=== PATIENT | female | born 1980 | race African-American/Black ===

== ENCOUNTER 2016-10-25 08:42 | Inpatient (IN) ==
[2016-10-25] MEDS ORDERED: PROMETHAZINE 25 MG/1 ML VIAL IM STA (09:37)
[2016-10-25] MEDS ORDERED: diphenhydrAMINE CAP 50 MG CAPSULE PO STA (09:37)
--- NOTE | 2016-10-25 09:58 | Emergency Department Note ---
Paul Bridges Brooke, am scribing for, and in the presence of, Jose Crowder MD 09:41 . Lakesha Bridges James D, MD, personally performed the services described in this documentation, ascribed by Marleny Miller in my presence, and it is both accurate and complete [id number] . Arrival - Arrival Chief Complaint: Headache Stated Complaint: headache and nausea ED Nursing Triage Note: pt reports that she has been having nausea and h/a for awhile reports that she was seen here tuesday night and told she had high bp and started on lisinopril. pt reports shes not feeling any better. Mode of Arrival: Ambulatory Limitations: No Limitations Source: Patient, RN Notes Reviewed Time Seen by Provider: 10/25/16 09:34 - History of Present Illness HPI Narrative: Patient is a 36 year old female who presents to the ED with c/o headache that has been ongoing for the past three weeks. Patient says the headache is diffuse but worse in the front. She describes the pain as throbbing. She also complains of having photophobia but denies having any fever or chills. She does have a history of migraines but says this pain is different. Patient was seen in the ED , two days ago, by Dr. Doll where her performed a head CT, which was negative. Patient says she was prescribed blood pressure medication but nothing for the headache. Along with the headache, Patient says she developed some tingling in her left thumb that is still there. She has no other complaints. Patient also has PMHx of HTN. Her Primary Care Provider is Dr. Henao. Onset (ago): week(s) (3) Date of Last Menstrual Period: hyst Allergies/Adverse Reactions: Allergies Allergy/AdvReac Type Severity Reaction Status Date / Time hydrocodone Allergy ANAPHYLAXIS Verified 10/23/16 20:32 sulfamethoxazole Allergy ANAPHYLAXIS Verified 10/23/16 20:32 [From Bactrim] trimethoprim [From Bactrim] Allergy ANAPHYLAXIS Verified 10/23/16 20:32 cefdinir [From Omnicef] AdvReac Nausea Verified 10/23/16 20:32 Home Medications: Home Medications Medication Instructions Recorded Confirmed Type Amitriptyline [Elavil] 10 mg PO Q6H #12 tablet 10/23/16 10/25/16 Rx Lisinopril/Hydrochlorothiazide 1 each PO DAILY #30 tablet 10/23/16 10/25/16 Rx [Lisinopril-Hctz 20-25 mg Tab] Promethazine Tab [Phenergan Tab] 25 mg PO Q6H #12 tablet 10/23/16 10/25/16 Rx Review of System - Review of System 12 point system: reviewed and no additional remarkable complaints except as stated - Review of System Constitutional: Absent: chills, fever Eyes: Present: other (photophobia) Respiratory: Absent: respiratory distress Skin: Absent: rash Neurological: Present: headache (diffuse but worse in front), other (tingling left thumb) Medical,Surgical,& Family Hx - Medical History Cardio: History of: Hypertension HEENT: History of: HEENT Problems (vocal cord surgery) - Surgical History Abdominal Surgeries: Surgical HX of: Cholecystectomy Reproductive Surgeries: Surgical HX of;: Hysterectomy - Social History Smoking Status: Never smoker Exam Vital Signs: Vital Signs Temperature 98.6 F 10/25/16 10: Pulse Rate 63 10/25/16 10:17 Respiratory Rate 18 10/25/16 10:17 Blood Pressure 140/88 10/25/16 10:17 O2 Sat by Pulse Oximetry 100 10/25/16 08:54 GENERAL: This is a well-nourished well-developed white female in no apparent distress. VITAL SIGNS: Reviewed HEENT: Head is atraumatic and normocephalic. Pupils are equal round react to light. Extraocular movements are intact. Oropharynx is benign with moist mucous membranes. NECK: Neck is soft and supple without tenderness. There are no masses. There is no lymphadenopathy. LUNGS: Lungs are clear to auscultation. Chest rises symmetrically. There is no chest wall tenderness. CV: Heart is regular rate and rhythm without murmurs rubs or gallops. ABDOMEN: Abdomen is soft, nontender to palpation. There are no abdominal abnormal masses palpated. There is no organomegaly. Bowel sounds are present and active. SKIN: Skin is warm and dry. No rash. EXTREMITIES: Patient has full range of motion without tenderness. There is no pedal edema. NEUROLOGIC: Awake alert and oriented 4. Cranial nerves II through XII are grossly intact. Motor is 5 over 5 in all extremities bilaterally. Deep tendon reflexes are 2+ and bilaterally equal. Results - Labs CBC & BMP: 10/25/16 12:38 Disposition Clinical Impression: Headache Case discussed with: patient Disposition: Disch To Home/Self Care Condition: Stable
[2016-10-25] MEDS ORDERED: diphenhydrAMINE CAP 50 MG CAPSULE ONE (10:08)
[2016-10-25] MEDS ORDERED: PROMETHAZINE 25 MG/1 ML VIAL ONE (10:08)
[2016-10-25] MEDS ORDERED: KETOROLAC 60 MG/2 ML VIAL IM ONE (10:53)
[2016-10-25] MEDS ORDERED: amLODIPine 5 MG TABLET ONE (10:54)
[2016-10-25] MEDS ORDERED: amLODIPine 5 MG TABLET PO STA (11:02)
[2016-10-25] MEDS ORDERED: KETOROLAC 60 MG/2 ML VIAL IM STA (11:03)
[2016-10-25] MEDS ORDERED: ONDANSETRON 4 MG/2 ML VIAL IV STA (12:04)
--- NOTE | 2016-10-25 12:44 | CT Report ---
Referring physician: Jose Crowder Exam: CT brain without contrast Date: 10/25/2016 Comparison: None Reason: Headache Technique: Axial images of the head were obtained without the use of contrast. Total DLP was 914.60 mGy*cm. Findings: No hydrocephalus or midline shift is present. There is no evidence of an acute infarction, recent intracranial hemorrhage or abnormal mass effect. The osseous structures appear intact. The mastoid air cells and visualized paranasal sinuses are clear. Impression: No acute intracranial abnormality is identified. The CT exam was performed using one or more of the following dose reduction techniques: Automated exposure control and adjustment of the mA and/or kV according to patient size. PROCEDURE INTERPRETED AT [facility] DEPARTMENT OF RADIOLOGY Final Report Signed by: Dr. Autumn Castro
[2016-10-25 12:45] LABS: Basophils % 0.5 % (0.0-0.8); Eosinophils # 0.1 10*3/uL (0.0-0.87); Eosinophils % 1.3 % (0.00-10.9); Hematocrit 43.9 VOL% (35.7-47.0); Hemoglobin 14.6 GM/DL (12.0-16.0); Immature Granulocytes % 0.2 %; Immature Granulocytes Absolute 0.01 #; Lymphocytes # 2.3 10*3/uL (1.4-4.0); Lymphocytes % 42.2 % (21.3-54.2); Mean Corpuscular HGB Conc 33.3 GM/DL (32-36); Mean Corpuscular Hemoglobin 29 PG (27-34); Mean Corpuscular Volume 86.9 FL (87-102); Mean Platelet Volume 11.6 FL (9.6-12.0); Monocytes # 0.4 10*3/uL (0.11-0.8); Monocytes % 7.2 % (1.7-12.7); Neutrophils # 2.7 10*3/uL (1.4-7.4); Neutrophils % 48.6 % (38.7-73.9); Platelet Count 157 T/CUMM (130-400); Red Blood Count 5.05 MC/CUMM (3.8-5.5); Red Cell Distribution Width 14.1 % (9.3-17.3); White Blood Count 5.5 T/CUMM (4-12)
[2016-10-25] MEDS ORDERED: HYDROmorphone 2 MG/1 ML VIAL ONE (12:47)
[2016-10-25] MEDS ORDERED: ONDANSETRON 4 MG/2 ML VIAL ONE (12:48)
[2016-10-25 12:49] LABS: Apearance,Urine CLEAR (Clear); Bilirubin,Urine Negative (Negative); Blood, Urine Negative (Negative); Glucose,Urine (UA) Negative (Negative); Ketones,Urine Negative (Negative); Mucus,Urine Occasional /LPF (Occasional); Nitrite,Urine Negative (Negative); Protein,Urine Negative; RBC,Urine <1 /HPF (0-4); Squamous Epithelial Cell,Urine Occasional /HPF (0-10); Urine Color Straw (Yellow); Urine Specific Gravity 1.009 (1.001-1.035); Urine Urobilinogen < 2.0 EU/DL (0.2-1.0); WBC,Urine 1 /HPF (0-6)
--- NOTE | 2016-10-25 12:49 | Hospitalist History & Physical ---
Assessment and Plan (1) Intractable migraine Status: Acute Assessment and plan: Dilaudid IV as needed, consult Dr. Dr. Guy, radiology recommends MRI with contrast. 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 Patient has had problems with a migraine for approximately 3 weeks. She was seen in the ER 2 days ago. She was given shots and sent home with Phenergan. Her headache improved but quickly worsened yesterday. She returns to the ER today with nausea and pain with light and sound. I would like Dr. Guy to see her today. Her head CT was reviewed with the radiologist and they did not see any evidence of tumor or bleed but recommended MRI with contrast. Home Medications Medication Instructions Recorded Confirmed Type Amitriptyline [Elavil] 10 mg PO Q6H #12 tablet 10/23/16 10/25/16 Rx Lisinopril/Hydrochlorothiazide 1 each PO DAILY #30 tablet 10/23/16 10/25/16 Rx [Lisinopril-Hctz 20-25 mg Tab] Promethazine Tab [Phenergan Tab] 25 mg PO Q6H #12 tablet 10/23/16 10/25/16 Rx Allergies Allergy/AdvReac Type Severity Reaction Status Date / Time hydrocodone Allergy ANAPHYLAXIS Verified 10/23/16 20:32 sulfamethoxazole Allergy ANAPHYLAXIS Verified 10/23/16 20:32 [From Bactrim] trimethoprim [From Bactrim] Allergy ANAPHYLAXIS Verified 10/23/16 20:32 cefdinir [From Omnicef] AdvReac Nausea Verified 10/23/16 20:32 Medical,Surgical,& Family Hx - Medical History Cardio: History of: Hypertension HEENT: History of: HEENT Problems (vocal cord surgery) - Surgical History Abdominal Surgeries: Surgical HX of: Cholecystectomy Reproductive Surgeries: Surgical HX of;: Hysterectomy - Family History Family History: Reports;: Family Stroke, Additional Family History (Migraines) Denies;: Family Diabetes, Family Heart Disease - Social History Smoking Status: Never smoker Frequency of Alcohol Use: None Type of Drug Use: None Marital Status: Single Lives With:: Alone Functional capacity: independent ambulation - Constitutional Constitutional: Present: chills, fever(s), headache(s) - EENT Eyes: Present: other (Pain with light). Absent: blurry vision, diplopia Ears: Absent: decreased hearing, ear discharge Nose, mouth and throat: Present: headache(s), sinus pressure - Cardiovascular Cardiovascular: Absent: chest pain at rest, chest pain with activity, dyspnea, dyspnea on exertion, edema - Respiratory Respiratory: Absent: dyspnea, dyspnea on exertion - Gastrointestinal Gastrointestinal: Present: nausea. Absent: vomiting - Genitourinary Genitourinary: Absent: difficulty urinating, dysuria, flank pain - Musculoskeletal Musculoskeletal: Absent: arthralgias, back pain - Neurological Neurological: Present: confusion, headache(s). Absent: syncope - Psychiatric Psychiatric: Absent: anxiety, depression - Endocrine Endocrine: Absent: cold intolerance, heat intolerance - Hematologic/Lymphatic Hematologic/Lymphatic: Absent: easy bleeding, easy bruising Exam - Constitutional Vitals: Period Temp Pulse Resp BP Sys/Araiza Pulse Ox Last 24 Hr 98.6 F-98.6 F 63-63 18-18 140-140/88-88 100 General appearance: normal weight, no acute distress - Head Head exam: Present: normal inspection, normocephalic - Eye Eye exam: Present: EOMI. Absent: scleral icterus Pupils: Present: SANDRO, normal accommodation - ENT ENT exam: Present: normal exam, normal external ear exam - Neck Neck exam: Absent: lymphadenopathy, thyromegaly - Respiratory Respiratory exam: Present: clear to auscultation bilaterally. Absent: rhonchi, stridor, wheezes - Cardiovascular Cardiovascular exam: Present: regular rate and rhythm. Absent: systolic murmur - GI/Abdominal GI/Abdominal exam: Present: normal bowel sounds, soft. Absent: tenderness - Extremities Exam Extremities exam: Present: normal inspection, normal capillary refill - Neurological Exam Neurological exam: Present: alert, oriented X3, CN II-XII intact, reflexes normal. Absent: motor sensory deficit - Psychiatric Psychiatric exam: Present: normal affect, normal mood - Skin Skin exam: Present: normal color, warm Results - Labs Labs: No labs back - Diagnostic Findings Procedure: CT: report reviewed by me (No report officially back discussed with the radiologist no bleed or mass)
[2016-10-25 13:26] LABS: Albumin 3.6 G/DL (3.4-5.0); Bilirubin,Total 0.4 MG/DL (0.2-1.0); Calcium 9.4 MG/DL (8.5-10.1); Osmolality,Calculated 277.3 MOS/KG (273-304); Potassium 3.7 MMOL/L (3.5-5.1); Total Protein 7.1 G/DL (6.4-8.3)
[2016-10-25] MEDS ORDERED: HYDROmorphone 2 MG/1 ML VIAL IV STA (14:01)
[2016-10-25] MEDS ORDERED: ONDANSETRON 4 MG/2 ML VIAL IV PRN (14:52)
[2016-10-25] MEDS ORDERED: AMITRIPTYLINE 10 MG TABLET PO SCH (14:52)
[2016-10-25] MEDS ORDERED: HYDROmorphone 2 MG/1 ML VIAL IV PRN (14:52)
--- NOTE | 2016-10-25 16:25 | Neurology Consult Note ---
History of Present Illness History of present illness: Ms. Tripathi is a 36 year old right-handed -[place] lady with past medical history significant for migraine headaches admitted the hospital with 3 week history of constant headache. She reported that she has taken multiple [id number] pain medications including Excedrin but nothing has helped. She describes her headache as deep throbbing type pain which hurts on all over the head associated with some nausea but no vomiting, photophobia and phonophobia. Never had a headache like this before. Patient has not been able to sleep either. She gets migraine headaches once in a blue marie. She reported that her headache is 8 out of 10 at this point in time. Head CT is negative. Home Medications Medication Instructions Recorded Confirmed Type Amitriptyline [Elavil] 10 mg PO Q6H #12 tablet 10/23/16 10/25/16 Rx Lisinopril/Hydrochlorothiazide 1 each PO DAILY #30 tablet 10/23/16 10/25/16 Rx [Lisinopril-Hctz 20-25 mg Tab] Promethazine Tab [Phenergan Tab] 25 mg PO Q6H #12 tablet 10/23/16 10/25/16 Rx Allergies Allergy/AdvReac Type Severity Reaction Status Date / Time hydrocodone Allergy ANAPHYLAXIS Verified 10/23/16 20:32 sulfamethoxazole Allergy ANAPHYLAXIS Verified 10/23/16 20:32 [From Bactrim] trimethoprim [From Bactrim] Allergy ANAPHYLAXIS Verified 10/23/16 20:32 cefdinir [From Omnicef] AdvReac Nausea Verified 10/23/16 20:32 12 point system: reviewed and no additional remarkable complaints except as stated Medical,Surgical,& Family Hx - Medical History Cardio: History of: Hypertension HEENT: History of: 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) - Surgical History Abdominal Surgeries: Surgical HX of: Cholecystectomy Reproductive Surgeries: Surgical HX of;: Gynecologic Surgery, Hysterectomy - Family History Family History: Reports;: Family Stroke, Additional Family History (Migraines) Denies;: Family Diabetes, Family Heart Disease - Social History Smoking Status: Never smoker Frequency of Alcohol Use: None Type of Drug Use: None Exam - Constitutional Vitals: Period Temp Pulse Resp BP Sys/Araiza Pulse Ox Last 24 Hr 97.3 F-98.6 F 56-63 18-20 137-149/88-93 92-100 Exam: GENERAL: Patient is in no acute distress. NECK: Neck is supple. There is no JVD. No carotid bruits present. No thyroid masses. CVS: First and second heart sounds are normal. There is no S3 present. Regular rate and rhythm. RESPIRATORY: Lungs are clear to auscultation without any rales or rhonchi. ABDOMEN: Soft and non-tender. Bowel sounds are present. There is no hepatosplenomegaly. EXT: There is no palpable edema. Peripheral pulses are present. Skin: No rashes Central Nervous system: General: Alert, awake and Oriented x 3 Speech: Fluent Comprehension: Intact and normal Facial expressions: Normal Cranial Nerves: CN1/Olfactory: Normal CN II/ Optic: Normal, Visual Ashley unreliable CN III, and : SANDRO & EOMI CN V: Normal & intact CN VII: face is symmetric CNVIII: Normal CN XI/X/XI/XII: Intact and Normal Motor: Bulk and Tone is normal. Strength in the right 5/5 Strength in the left 5/5 Sensory: Grossly intact for all the modalities of PP, LT and temp sense Reflexes: 1+ and symmetrical Cerebellar function: Normal finger to nose and heel to laboy testing. Toes: Equivocal Gait: Normal heel to heel and toe to toe and tandem walk. Results - Labs CBC & BMP: 10/25/16 12:38 10/25/16 12:38 Assessment and Plan (1) Intractable migraine Status: Acute Assessment and plan: Geodon 20 mg IM 1 dose now Change Elavil to 50 mg p.o. at bedtime Stop Dilaudid Thank you for the consult We will follow her along with you Current Visit: Yes
[2016-10-25] MEDS ORDERED: ZIPRASIDONE 20 MG/1 ML VIAL IM ONE (16:27)
[2016-10-25] MEDS: DIVALPROEX 500 MG TABLET PO SCH ×2 (17:29→21:28)
[2016-10-25] MEDS: AMITRIPTYLINE 10 MG TABLET PO SCH (21:27)
[2016-10-26] MEDS: amLODIPine 5 MG TABLET PO SCH (09:33)
[2016-10-26] MEDS: DIVALPROEX 500 MG TABLET PO SCH (09:33)
--- NOTE | 2016-10-26 09:47 | EKG Report ---
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
--- NOTE | 2016-10-26 11:47 | Hospitalist Progress Note ---
Assessment and Plan (1) Intractable headache Status: Acute Assessment and plan: She does have a history of migraines. This could be complex migraines or basilar migraines. There are typical and that there are bilateral and they at this point is association of alarming symptoms with blood vision and left arm weakness and numbness. Patient needs to have an MRI and MRA. If the MRI is abnormal patient will need a CTA. Current Visit: Yes (2) Dysesthesia Status: Acute Assessment and plan: This is associated with headaches such as an alarming symptom. And if is the central ischemia space-occupying pathology basilar migraine or simple migraines. Current Visit: Yes (3) Blurred vision Status: Acute Assessment and plan: Patient will have an MRI and MRA of the brain. Current Visit: Yes Hospitalist: Subjective Interval history: Patient has been seen interviewed and examined and chart has been reviewed mediated to the hospital in the late evening yesterday with intractable headaches left-sided visual disturbance with blurring of vision complaining of numbness and weakness in the left upper extremity. She had a noncontrast CT scan which was nondiagnostic. These abdominal symptoms as mentioned above still persist as such they are alarming enough for me to order an MRI of the brain and MRA of the brain for this lady. She is on observation; I believe we should keep her here until we know more about the MRI. If something is found on the brain she should be changed to acute admission. Exam - Constitutional Vitals: Period Temp Pulse Resp BP Sys/Araiza Pulse Ox Last 24 Hr 96.7 F-98.3 F 56-84 14-20 96-149/56-93 92-100 General appearance: normal weight, no acute distress - Head Head exam: Present: normocephalic, atraumatic - Eye Eye exam: Present: EOMI, other (Complains of blurriness of the left eye.) Pupils: Present: SANDRO - ENT ENT exam: Present: normal exam - Neck Neck exam: Present: normal inspection - Respiratory Respiratory exam: Present: clear to auscultation bilaterally - Cardiovascular Cardiovascular exam: Present: regular rate and rhythm - GI/Abdominal GI/Abdominal exam: Present: normal bowel sounds, soft - Extremities Exam Extremities exam: Present: full ROM, other (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
--- NOTE | 2016-10-26 12:22 | Magnetic Resonance Report ---
MRI of the brain with and without contrast. Indication: Left-sided weakness. Migraines. 13 cc Dotarem. No prior study. Sagittal T1, axial diffusion, axial T2, axial FLAIR, axial T1, axial gradient echo, axial T1 plus contrast, sagittal T1 postcontrast, coronal T1 plus contrast, axial ADC. The cerebellar tonsils are low-lying, ranging between 4 to 7 mm below the foramen magnum depending on level of measurement. The right tonsil is more inferiorly displaced than the left, and demonstrates mild triangulation of contour. There is no edema present. There is no compromise of the junction of the brainstem and the cord. There is no evidence of cervical syrinx. The pituitary gland is normal in size. The ventricles are normal in size and configuration. The venous sinuses are patent there is no mass effect, midline shift, or area of hemorrhage. There is no abnormal signal within the white matter. No ischemic lesions are seen. There are no areas of abnormal enhancement. Mild paranasal sinus disease. 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 Careful clinical correlation with symptoms recommended. No secondary findings seen. No ischemic lesions are noted at this time. PROCEDURE INTERPRETED AT [facility] DEPARTMENT OF RADIOLOGY Final Report Signed by: Dr. Kindra Rodríguez
--- NOTE | 2016-10-26 12:24 | Magnetic Resonance Report ---
MRA of the [place] of [place]. Indication: Migraine headaches. Left-sided weakness. MIP and 3-D [id number]. The anterior and posterior circulations demonstrate normal columns of flow, without evidence of stenosis, irregularity or beading. No aneurysmal dilatation is seen. Impression: Normal study. PROCEDURE INTERPRETED AT [facility] DEPARTMENT OF RADIOLOGY Final Report Signed by: Dr. Kindra Rodríguez
[2016-10-26] MEDS: KETOROLAC 15 MG/1 ML VIAL IV PRN (12:37)
[2016-10-26] MEDS: PROMETHAZINE 25 MG/1 ML VIAL IM PRN ×2 (12:39→17:22)
--- NOTE | 2016-10-26 15:42 | Neurology Progress Note ---
Neurology - PN : Subjective Interval history: Patient reported that she did get better yesterday night as well as early this morning she was doing much better headache torres however later during the day headache returned. She also underwent MRI of the brain and MRA of the head which reveals no significant pathology. There is a evidence of borderline Chiari malformation which is asymptomatic. Exam (Progress Note) - Constitutional Vitals: Period Temp Pulse Resp BP Sys/Araiza Pulse Ox Last 24 Hr 96.7 F-98.3 F 61-84 14-20 96-122/56-74 96-100 Exam: GENERAL: Patient is in no acute distress. NECK: Neck is supple. There is no JVD. No carotid bruits present. No thyroid masses. CVS: First and second heart sounds are normal. There is no S3 present. Regular rate and rhythm. RESPIRATORY: Lungs are clear to auscultation without any rales or rhonchi. ABDOMEN: Soft and non-tender. Bowel sounds are present. There is no hepatosplenomegaly. EXT: There is no palpable edema. Peripheral pulses are present. Skin: No rashes Central Nervous system: General: Alert, awake and Oriented x 3 Speech: Fluent Comprehension: Intact and normal Facial expressions: Normal Cranial Nerves: CN1/Olfactory: Normal CN II/ Optic: Normal, Visual Ashley unreliable CN III, and : SANDRO & EOMI CN V: Normal & intact CN VII: face is symmetric CNVIII: Normal CN XI/X/XI/XII: Intact and Normal Motor: Bulk and Tone is normal. Strength in the right 5/5 Strength in the left 5/5 Sensory: Grossly intact for all the modalities of PP, LT and temp sense Reflexes: 1+ and symmetrical Cerebellar function: Normal finger to nose and heel to laboy testing. Toes: Equivocal Gait: Not tested at this time Results - Labs CBC & BMP: 10/25/16 12:38 10/25/16 12:38 Assessment and Plan (1) Intractable migraine Status: Acute Assessment and plan: Imitrex 6 mg subcu 1 dose Phenergan 25 mg IM 1 dose Thorazine 25 mg IV 1 dose at bedtime Continue Elavil at the same dose Stop Depakote Current Visit: Yes
[2016-10-26] MEDS ORDERED: SUMAtriptan 6 MG/0.5 ML VIAL SUBCUT ONE (15:46)
[2016-10-26] MEDS ORDERED: PROMETHAZINE 25 MG/1 ML VIAL IM ONE (15:47)
[2016-10-26] MEDS ORDERED: chlorproMAZINE 25 MG/1 ML AMP IM ONE ×2 (21:00→22:30)
[2016-10-26] MEDS: AMITRIPTYLINE 10 MG TABLET PO SCH (22:32)
[2016-10-27] MEDS: amLODIPine 5 MG TABLET PO SCH (08:45)
--- NOTE | 2016-10-27 15:26 | Hospitalist Progress Note ---
Assessment and Plan (1) Intractable headache Status: Acute Assessment and plan: Neurology assisting MRI and MRA without acute process Current Visit: Yes (2) Dysesthesia Status: Acute Current Visit: Yes (3) Blurred vision Status: Acute Current Visit: Yes Hospitalist: Subjective Interval history: No acute events overnight. Patient still with headache exacerbated by movement. She reports hallucinations with a medication that she received overnight. Exam - Constitutional Vitals: Period Temp Pulse Resp BP Sys/Araiza Pulse Ox Last 24 Hr 97.5 F-98.4 F 80-107 18-20 94-118/52-70 93-99 General appearance: normal weight - Head Head exam: Present: normocephalic, atraumatic - Eye Eye exam: Present: EOMI Pupils: Present: SANDRO - ENT ENT exam: Present: normal exam - Neck Neck exam: Present: normal inspection - Respiratory Respiratory exam: Present: clear to auscultation bilaterally. Absent: wheezes - Cardiovascular Cardiovascular exam: Present: regular rate and rhythm - GI/Abdominal GI/Abdominal exam: Present: normal bowel sounds, soft. Absent: tenderness, rebound - Extremities Exam Extremities exam: Present: normal inspection - Back Exam Back exam: Present: normal inspection - Neurological Exam Neurological exam: Present: alert, oriented X3 - Psychiatric Psychiatric exam: Present: normal affect, normal mood - Skin Skin exam: Present: warm, intact Results - Labs CBC & BMP: 10/25/16 12:38 10/25/16 12:38
--- NOTE | 2016-10-27 15:53 | Neurology Progress Note ---
Neurology - PN : Subjective Interval history: Patient reported that headaches are better but it is still there. She could not tolerate Imitrex yesterday. Given her palpitation and some questionable hallucinations. Severity of the headache at this time is 5-6/10 Exam (Progress Note) - Constitutional Vitals: Period Temp Pulse Resp BP Sys/Araiza Pulse Ox Last 24 Hr 97.5 F-98.4 F 80-107 18-20 94-154/52-70 93-99 Exam: GENERAL: Patient is in no acute distress. NECK: Neck is supple. There is no JVD. No carotid bruits present. No thyroid masses. CVS: First and second heart sounds are normal. There is no S3 present. Regular rate and rhythm. RESPIRATORY: Lungs are clear to auscultation without any rales or rhonchi. ABDOMEN: Soft and non-tender. Bowel sounds are present. There is no hepatosplenomegaly. EXT: There is no palpable edema. Peripheral pulses are present. Skin: No rashes Central Nervous system: General: Alert, awake and Oriented x 3 Speech: Fluent Comprehension: Intact and normal Facial expressions: Normal Cranial Nerves: CN1/Olfactory: Normal CN II/ Optic: Normal, Visual Ashley unreliable CN III, and : SANDRO & EOMI CN V: Normal & intact CN VII: face is symmetric CNVIII: Normal CN XI/X/XI/XII: Intact and Normal Motor: Bulk and Tone is normal. Strength in the right 5/5 Strength in the left 5/5 Sensory: Grossly intact for all the modalities of PP, LT and temp sense Reflexes: 1+ and symmetrical Cerebellar function: Normal finger to nose and heel to laboy testing. Toes: Equivocal Gait: Not tested at this time Results - Labs CBC & BMP: 10/25/16 12:38 10/25/16 12:38 Assessment and Plan (1) Intractable migraine Status: Acute Assessment and plan: Give her a trial of DHE 45 as follows DHE 45 0.5 mg IV and Reglan 10 mg IV test dose, wait for 30 minute if no reaction then repeat the same dose. Wait for 1 hour. If headache persists then give following D.H.E. 45 1 mg IV and Reglan 10 mg IV every hour as needed not more than 2 doses per 24 hours If headache persist after DHE protocol, then we will try Geodon 20 mg IM 1 dose at bedtime If headache persist in the morning then we will plan for spinal tap Current Visit: Yes
[2016-10-27] MEDS ORDERED: METOCLOPRAMIDE 10 MG/2 ML VIAL IV ONE (15:54)
[2016-10-27] MEDS ORDERED: ZIPRASIDONE 20 MG/1 ML VIAL IM PRN (15:58)
[2016-10-27] MEDS ORDERED: DIHYDROERGOTAMINE 1 MG/ML AMP IV ONE (15:59)
[2016-10-27] MEDS: KETOROLAC 15 MG/1 ML VIAL IV PRN (19:30)
[2016-10-27] MEDS: AMITRIPTYLINE 10 MG TABLET PO SCH (20:57)
[2016-10-28 07:24] LABS: Basophils % 0.4 % (0.0-0.8); Eosinophils # 0.1 10*3/uL (0.0-0.87); Eosinophils % 1.4 % (0.00-10.9); Hematocrit 38.5 VOL% (35.7-47.0); Lymphocytes # 1.9 10*3/uL (1.4-4.0); Lymphocytes % 39.3 % (21.3-54.2); Mean Corpuscular HGB Conc 33.8 GM/DL (32-36); Mean Corpuscular Hemoglobin 29 PG (27-34); Mean Corpuscular Volume 86.9 FL (87-102); Mean Platelet Volume 11.8 FL (9.6-12.0); Monocytes # 0.4 10*3/uL (0.11-0.8); Monocytes % 8.9 % (1.7-12.7); Neutrophils # 2.4 10*3/uL (1.4-7.4); Platelet Count 157 T/CUMM (130-400); Red Blood Count 4.43 MC/CUMM (3.8-5.5); Red Cell Distribution Width 14.2 % (9.3-17.3); White Blood Count 4.8 T/CUMM (4-12)
[2016-10-28 07:55] LABS: Calcium 8.5 MG/DL (8.5-10.1); Magnesium 2.2 MG/DL (1.8-2.4); Osmolality,Calculated 285.8 MOS/KG (273-304)
[2016-10-28] MEDS: NYSTATIN 500,000 UNIT/5 ML UDCUP SWISH/SWAL SCH ×4 (09:11→20:33)
[2016-10-28] MEDS: amLODIPine 5 MG TABLET PO SCH (09:11)
--- NOTE | 2016-10-28 09:14 | Neurology Progress Note ---
Neurology - PN : Subjective Interval history: Patient still have some headache this morning. Headache severity is 5/10. She could not tolerate test dose of DHE yesterday either. That made her head feel heavy. She has been having hard time tolerating medicines. Exam (Progress Note) - Constitutional Vitals: Period Temp Pulse Resp BP Sys/Araiza Pulse Ox Last 24 Hr 97.0 F-98.4 F 73-107 16-20 106-154/58-74 95-99 Exam: GENERAL: Patient is in no acute distress. NECK: Neck is supple. There is no JVD. No carotid bruits present. No thyroid masses. CVS: First and second heart sounds are normal. There is no S3 present. Regular rate and rhythm. RESPIRATORY: Lungs are clear to auscultation without any rales or rhonchi. ABDOMEN: Soft and non-tender. Bowel sounds are present. There is no hepatosplenomegaly. EXT: There is no palpable edema. Peripheral pulses are present. Skin: No rashes Central Nervous system: General: Alert, awake and Oriented x 3 Speech: Fluent Comprehension: Intact and normal Facial expressions: Normal Cranial Nerves: CN1/Olfactory: Normal CN II/ Optic: Normal, Visual Ashley unreliable CN III, and : SANDRO & EOMI CN V: Normal & intact CN VII: face is symmetric CNVIII: Normal CN XI/X/XI/XII: Intact and Normal Motor: Bulk and Tone is normal. Strength in the right 5/5 Strength in the left 5/5 Sensory: Grossly intact for all the modalities of PP, LT and temp sense Reflexes: 1+ and symmetrical Cerebellar function: Normal finger to nose and heel to laboy testing. Toes: Equivocal Gait: Normal Results - Labs CBC & BMP: 10/28/16 05:57 10/28/16 05:57 Assessment and Plan (1) Intractable migraine Status: Acute Assessment and plan: Compazine 10 mg p.o. every 8 Benadryl 25 mg p.o. every 8 Consult pain for occipital nerve block. Current Visit: Yes
[2016-10-28] MEDS: diphenhydrAMINE CAP 25 MG CAPSULE PO SCH ×2 (09:35→16:58)
[2016-10-28] MEDS: PROCHLORPERAZINE 10 MG TABLET PO SCH ×2 (09:35→16:58)
[2016-10-28] MEDS ORDERED: DEXAMETHASONE 10 MG/1 ML VIAL IM ONE (10:08)
[2016-10-28] MEDS ORDERED: BUPIVACAINE 0.5% /EPI 10 ML VIAL NERVEBLOCK ONE (10:08)
--- NOTE | 2016-10-28 10:52 | Pain Management Consult Note ---
Assessment and Plan (1) Intractable migraine Status: Acute Assessment and plan: We will proceed with bilateral greater and lesser occipital nerve blocks today at patient request Current Visit: Yes Qualifiers: Migraine type: without aura History of Present Illness Chief complaint: Bilateral occipital headaches History of present illness: Ms. Tripathi is a 36 year old female Patient has been admitted with severe occipital headaches. I was asked by Dr. Guy to proceed with bilateral occipital nerve blocks. I have had a detailed discussion with the patient and her family. I have explained the risks benefits and limitations of these blocks and possible side effects and complications and patient is willing to proceed today Home Medications Medication Instructions Recorded Confirmed Type Amitriptyline [Elavil] 10 mg PO Q6H #12 tablet 10/23/16 10/25/16 Rx Lisinopril/Hydrochlorothiazide 1 each PO DAILY #30 tablet 10/23/16 10/25/16 Rx [Lisinopril-Hctz 20-25 mg Tab] Promethazine Tab [Phenergan Tab] 25 mg PO Q6H #12 tablet 10/23/16 10/25/16 Rx Allergies Allergy/AdvReac Type Severity Reaction Status Date / Time hydrocodone Allergy ANAPHYLAXIS Verified 10/23/16 20:32 sulfamethoxazole Allergy ANAPHYLAXIS Verified 10/23/16 20:32 [From Bactrim] trimethoprim [From Bactrim] Allergy ANAPHYLAXIS Verified 10/23/16 20:32 cefdinir [From Omnicef] AdvReac Nausea Verified 10/23/16 20:32 Medical,Surgical,& Family Hx - Medical History Cardio: History of: Hypertension HEENT: History of: 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) - Surgical History Abdominal Surgeries: Surgical HX of: Cholecystectomy Reproductive Surgeries: Surgical HX of;: Gynecologic Surgery, Hysterectomy - Family History Family History: Reports;: Family Stroke, Additional Family History (Migraines) Denies;: Family Diabetes, Family Heart Disease - Social History Smoking Status: Never smoker Frequency of Alcohol Use: None Type of Drug Use: None 12 point system: reviewed and no additional remarkable complaints except as stated Exam - Constitutional Vitals: Period Temp Pulse Resp BP Sys/Araiza Pulse Ox Last 24 Hr 97.0 F-98.4 F 73-107 16-20 106-154/58-74 95-99 General appearance: normal weight - Head Head exam: Present: normal inspection - Eye Eye exam: Present: EOMI Pupils: Present: SANDRO - ENT ENT exam: Present: normal exam, other (Bilateral occipital areas are tender) Ear exam: Present: intact Mouth exam: Present: normal external inspection - Neck Neck exam: Present: normal inspection - Respiratory Respiratory exam: Present: clear to auscultation bilaterally - Cardiovascular Cardiovascular exam: Present: RRR - GI/Abdominal GI/Abdominal exam: Present: normal bowel sounds - Extremities Exam Extremities exam: Present: normal inspection - Back Exam Back exam: Present: normal inspection - Neurological Exam Neurological exam: Present: alert, oriented X3, normal gait Speech: Present: normal - Skin Skin exam: Present: normal color Results - Labs CBC & BMP: 10/28/16 05:57 10/28/16 05:57 Lab Results: I have reviewed the past 24 hour labs
[2016-10-28] MEDS ORDERED: LIDOCAINE 1% 20 ML VIAL IM ONE (10:54)
--- NOTE | 2016-10-28 10:55 | Operative Note ---
Date of procedure: 10/28/16 Pre-op diagnosis: Bilateral greater and lesser occipital neuralgia, intractable migraine Post-op diagnosis: same Procedure: Procedure is bilateral greater and lesser occipital nerve blocks Informed consent was signed and patient was sitting on the side of her bed facing away from me with adequate support. Informed consent has been signed. Bilateral occipital areas were identified with landmarks and Betadine and alcohol prep was done by me. Using a 25-gauge needle at the procedure was started on the right side. The right greater occipital nerve blocks was performed just medial of the occipital artery and the right lesser occipital nerve block was performed lateral to the right occipital artery. Total amount injected was 5 mg of Decadron and half a cc of 1% lidocaine. Attention was then diverted towards the left greater and lesser occipital nerve area similar procedure was performed and 5 mg Decadron a half a cc 1% lidocaine was injected there. Needle was removed intact. Patient did not have any swelling or significant bleeding any side effects. Patient did report some pain relief after the procedure. Anesthesia: local Surgeon / Physician: Angeles Andino Estimated blood loss: none Specimens: none sent Condition: stable Disposition: floor Results - Labs CBC & BMP: 10/28/16 05:57 10/28/16 05:57 Discharge Plan - Discharge Medications No Action Lisinopril/Hydrochlorothiazide [Lisinopril-Hctz 20-25 mg Tab] 1 each PO DAILY #30 tablet Promethazine Tab [Phenergan Tab] 25 mg PO Q6H #12 tablet Amitriptyline [Elavil] 10 mg PO Q6H #12 tablet - Follow Up or Referral - Forms/Instructions
--- NOTE | 2016-10-28 11:51 | EKG Report ---
Stationary ECG Study [facility] ER Test Date: 10/25/2016 1:22:17 PM Pat Name: JACKELYN REDMAN Department: Room: 238 Gender: F [employer]: : 1980 Requested by: Jose Perera Order Number: [id number] Reading MD: HARIKA MCLEOD Intervals [place] Rate: 60 P: 69 CO: 161 QRS: 89 QRSD: 84 T: 73 QT: 416 QTc: 417 Interpretive Statements SINUS RHYTHM WARNING: DATA QUALITY MAY AFFECT INTERPRETATION Electronically Signed On 10-28-16 12:13:59 CDT by HARIKA MCLEOD [email or web address]
--- NOTE | 2016-10-28 15:49 | Hospitalist Progress Note ---
Assessment and Plan (1) Intractable headache Status: Acute Assessment and plan: Neurology assisting MRI and MRA without acute process Difficulty with multiple medications for various reasons S/p occipital nerve block by pain management today Current Visit: Yes (2) Dysesthesia Status: Acute Current Visit: Yes (3) Blurred vision Status: Acute Current Visit: Yes Hospitalist: Subjective Interval history: No acute events overnight. Patient seen this afternoon after occipital nerve block was performed, reports that her headache felt better. Reports that light bothers her eyes. Exam - Constitutional Vitals: Period Temp Pulse Resp BP Sys/Araiza Pulse Ox Last 24 Hr 97.0 F-97.7 F 73-89 16-20 106-124/67-74 98-99 General appearance: normal weight - Head Head exam: Present: normocephalic, atraumatic - Eye Eye exam: Present: EOMI Pupils: Present: SANDRO - ENT ENT exam: Present: normal exam - Neck Neck exam: Present: normal inspection - Respiratory Respiratory exam: Present: clear to auscultation bilaterally - Cardiovascular Cardiovascular exam: Present: regular rate and rhythm - GI/Abdominal GI/Abdominal exam: Present: normal bowel sounds, soft. Absent: tenderness, rebound - Extremities Exam Extremities exam: Present: normal inspection - Back Exam Back exam: Present: normal inspection - Neurological Exam Neurological exam: Present: alert, oriented X3 - Psychiatric Psychiatric exam: Present: normal affect, normal mood - Skin Skin exam: Present: warm, intact Results - Labs CBC & BMP: 10/28/16 05:57 10/28/16 05:57
[2016-10-28] MEDS: AMITRIPTYLINE 10 MG TABLET PO SCH (20:33)
[2016-10-29] MEDS: PROCHLORPERAZINE 10 MG TABLET PO SCH ×2 (00:32→09:34)
[2016-10-29] MEDS: diphenhydrAMINE CAP 25 MG CAPSULE PO SCH ×3 (00:32→17:29)
--- NOTE | 2016-10-29 06:34 | Pain Management Progress Note ---
Assessment and Plan (1) Intractable migraine Status: Acute Assessment and plan: We will proceed with bilateral greater and lesser occipital nerve blocks today at patient request 10/29 defer to neurology regarding further treatment of migraine Current Visit: Yes Qualifiers: Migraine type: without aura Pain - Subjective Interval history: The patient underwent bilateral greater and lesser occipital nerve blocks by me yesterday. Patient reports that there was at least some temporary benefit from the block. However still complaining of pain in the occipital area. I do not think repeating the occipital blocks would be of any benefit. We will wait for neurology recommendations for further treatment of migraine Exam - Constitutional Vitals: Period Temp Pulse Resp BP Sys/Araiza Pulse Ox Last 24 Hr 96.9 F-97.8 F 76-114 16-20 111-134/67-79 95-99 General appearance: no acute distress - Head Head exam: Present: normal inspection - Eye Eye exam: Present: EOMI Pupils: Present: SANDRO - ENT ENT exam: Present: normal exam Ear exam: Present: intact. Absent: [place] Mouth exam: Present: normal external inspection - Neck Neck exam: Present: normal inspection - Respiratory Respiratory exam: Present: clear to auscultation bilaterally - Cardiovascular Cardiovascular exam: Present: RRR - GI/Abdominal GI/Abdominal exam: Present: normal bowel sounds - Extremities Exam Extremities exam: Present: normal inspection - Back Exam Back exam: Present: normal inspection - Neurological Exam Neurological exam: Present: alert, oriented X3 Speech: Present: normal - Skin Skin exam: Present: normal color, warm Results - Labs CBC & BMP: 10/28/16 05:57 10/28/16 05:57 Lab Results: I have reviewed the past 24 hour labs
[2016-10-29] MEDS: NYSTATIN 500,000 UNIT/5 ML UDCUP SWISH/SWAL SCH ×4 (09:33→21:00)
[2016-10-29] MEDS: amLODIPine 5 MG TABLET PO SCH (09:34)
[2016-10-29] MEDS ORDERED: KETOROLAC 60 MG/2 ML VIAL IM ONE (09:51)
[2016-10-29] MEDS ORDERED: PROMETHAZINE INJ 25 MG in SODIUM CHLORIDE 0.9% 50 ML IV ONE (10:30)
[2016-10-29 12:21] LABS: Appearance,CSF Clear; Lymphocytes,CSF 100 %; Red Blood Cell,CSF 54 C/CUMM; White Blood Cell,CSF 2 C/CUMM
--- NOTE | 2016-10-29 12:42 | Post Interventional Procedure ---
Pre-op diagnosis: intractable migrane headache Post-op diagnosis: same Procedure: lumbar puncture Contrast: none Flouroscopy: 0.3 min Radiologist: Melo Webb Anesthesia: local Specimens: other (10 mL clear colorless CSF sent) Estimated blood loss: none Complications: none Condition: stable Description/Findings: 14 cm H2O opening pressure patient tolerated well Assessment and Plan - Time spent with patient Time spent with patient: Less than 30 minutes
--- NOTE | 2016-10-29 12:49 | Interventional Radiology Rpt ---
Procedure: IR lumbar puncture diagnostic Clinical history: 36-year-old female with intractable migraine headache. Procedure: Informed consent was obtained prior to procedure. Formal timeout was performed. Maximum sterile barrier technique was employed. The patient was placed prone on the fluoroscopy table. The low back was prepped and draped in a sterile fashion. A midline lumbar puncture was then performed at the L2-L3 interspace using a 20-gauge spinal needle. Fluoroscopic guidance was used and a captured image documents the needle position. An opening pressure of 14 cm water was obtained. Subsequently, 10 milliliters of clear, colorless CSF was withdrawn and sent to laboratory. The spinal needle was removed and a bandage placed the puncture site. Fluoroscopy time: 0.3 minutes. Number of Images: 8. Impression: Technically successful diagnostic lumbar puncture as described. PROCEDURE INTERPRETED AT [facility] DEPARTMENT OF RADIOLOGY Final Report Signed by: Melo Webb
--- NOTE | 2016-10-29 12:52 | XRay Report ---
XR cervical spine complete Indication: Pain and headache. Cervical spine 5 views: Comparison 04/01/2009. No fracture, subluxation, significant disc space narrowing or prevertebral soft tissue abnormalities are shown. Impression: Negative cervical spine. No change. PROCEDURE INTERPRETED AT [facility] DEPARTMENT OF RADIOLOGY Final Report Signed by: Angel Barksdale M.D.
--- NOTE | 2016-10-29 15:06 | Neurology Progress Note ---
Neurology - PN : Subjective Interval history: Patient is still having significant headaches. However Toradol injection today has helped almost 35-40%. Yesterday nerve block did not help at all either. Spinal tap under fluoroscopy today is unremarkable. Opening pressure of 14 cm of water. CSF WBC is 2, RBC 54, glucose 72, and total protein is 21. Exam (Progress Note) - Constitutional Vitals: Period Temp Pulse Resp BP Sys/Araiza Pulse Ox Last 24 Hr 96.9 F-98.4 F 86-114 16-22 106-137/64-91 95-100 Exam: GENERAL: Patient is in no acute distress. NECK: Neck is supple. There is no JVD. No carotid bruits present. No thyroid masses. CVS: First and second heart sounds are normal. There is no S3 present. Regular rate and rhythm. RESPIRATORY: Lungs are clear to auscultation without any rales or rhonchi. ABDOMEN: Soft and non-tender. Bowel sounds are present. There is no hepatosplenomegaly. EXT: There is no palpable edema. Peripheral pulses are present. Skin: No rashes Central Nervous system: General: Alert, awake and Oriented x 3 Speech: Fluent Comprehension: Intact and normal Facial expressions: Normal Cranial Nerves: CN1/Olfactory: Normal CN II/ Optic: Normal, Visual Ashley unreliable CN III, and : SANDRO & EOMI CN V: Normal & intact CN VII: face is symmetric CNVIII: Normal CN XI/X/XI/XII: Intact and Normal Motor: Bulk and Tone is normal. Strength in the right 5/5 Strength in the left 5/5 Sensory: Grossly intact for all the modalities of PP, LT and temp sense Reflexes: 1+ and symmetrical Cerebellar function: Normal finger to nose and heel to laboy testing. Toes: Equivocal Gait: Normal Results - Labs CBC & BMP: 10/28/16 05:57 10/28/16 05:57 Assessment and Plan (1) Intractable migraine Status: Acute Assessment and plan: Stop Compazine and Benadryl Relpax 40 mg every 12 hours as needed Naproxen 500 mg to take with Relpax Phenergan 25 mg p.o. to take with Relpax Solu-Medrol 62.5 mg IV q. 12 for 24 hour Add Topamax 50 mg daily Current Visit: Yes Qualifiers: Migraine type: without aura
[2016-10-29] MEDS: methylPREDNISolone SOD SUC 125 MG/2 ML VIAL IV SCH (15:31)
--- NOTE | 2016-10-29 16:14 | Hospitalist Progress Note ---
Assessment and Plan (1) Intractable headache Status: Acute Assessment and plan: Neurology assisting MRI and MRA without acute process Difficulty with multiple medications for various reasons S/p occipital nerve block by pain management 10/28/16, with no relief LP today Trying relpx, naproxen and phenergan solumedrol topamax Current Visit: Yes (2) Dysesthesia Status: Acute Current Visit: Yes (3) Blurred vision Status: Acute Current Visit: Yes Hospitalist: Subjective Interval history: No acute events overnight. She does report the return of her headache and being unable to sleep. Exam - Constitutional Vitals: Period Temp Pulse Resp BP Sys/Araiza Pulse Ox Last 24 Hr 97.4 F-98.4 F 86-114 16-22 106-137/64-91 95-100 General appearance: normal weight - Head Head exam: Present: normocephalic, atraumatic - Eye Eye exam: Present: EOMI Pupils: Present: SANDRO - ENT ENT exam: Present: normal exam - Neck Neck exam: Present: normal inspection - Respiratory Respiratory exam: Present: clear to auscultation bilaterally - Cardiovascular Cardiovascular exam: Present: regular rate and rhythm - GI/Abdominal GI/Abdominal exam: Present: normal bowel sounds, soft. Absent: tenderness, rebound - Extremities Exam Extremities exam: Present: normal inspection - Back Exam Back exam: Present: normal inspection - Neurological Exam Neurological exam: Present: alert, oriented X3 - Psychiatric Psychiatric exam: Present: normal affect, normal mood - Skin Skin exam: Present: warm, intact Results - Labs CBC & BMP: 10/28/16 05:57 10/28/16 05:57
[2016-10-29] MEDS: POLYETHYLENE GLYCOL POWDER 17 GM PACK PO SCH (17:29)
[2016-10-29] MEDS: NAPROXEN 500 MG TABLET PO PRN (19:32)
[2016-10-29] MEDS: RIZATRIPTAN ODT 5 MG TABLET PO PRN (19:32)
[2016-10-29] MEDS: PROMETHAZINE 25 MG TABLET PO PRN (19:32)
[2016-10-29] MEDS: AMITRIPTYLINE 10 MG TABLET PO SCH (21:00)
[2016-10-30] MEDS: diphenhydrAMINE CAP 25 MG CAPSULE PO SCH (03:30)
[2016-10-30] MEDS: methylPREDNISolone SOD SUC 125 MG/2 ML VIAL IV SCH ×2 (03:59→16:50)
[2016-10-30] MEDS: PROMETHAZINE 25 MG TABLET PO PRN (08:39)
[2016-10-30] MEDS: NYSTATIN 500,000 UNIT/5 ML UDCUP SWISH/SWAL SCH ×4 (08:39→21:09)
[2016-10-30] MEDS: POLYETHYLENE GLYCOL POWDER 17 GM PACK PO SCH (08:39)
[2016-10-30] MEDS: amLODIPine 5 MG TABLET PO SCH (08:45)
[2016-10-30] MEDS: NAPROXEN 500 MG TABLET PO PRN (09:51)
[2016-10-30] MEDS: RIZATRIPTAN ODT 5 MG TABLET PO PRN (09:51)
[2016-10-30] MEDS ORDERED: KETOROLAC 60 MG/2 ML VIAL IM ONE (12:37)
[2016-10-30] MEDS ORDERED: PROMETHAZINE 25 MG/1 ML VIAL IM ONE (12:38)
--- NOTE | 2016-10-30 12:42 | Neurology Progress Note ---
Neurology - PN : Subjective Interval history: Patient reported that she had fairly good day yesterday after Toradol injection. Headaches returned this morning. Did not sleep good last night either. Medications tried so far preventatively: Elavil. Medications tried for abortive purposes: Imitrex (caused palpitate), DHE (caused heaviness of head ), Maxalt (no help) Geodon, Thorazine. Spinal tap is negative. MRI of the brain is negative. Exam (Progress Note) - Constitutional Vitals: Period Temp Pulse Resp BP Sys/Araiza Pulse Ox Last 24 Hr 96.7 F-98.6 F 60-104 15-20 106-134/65-86 93-99 Exam: GENERAL: Patient is in no acute distress. NECK: Neck is supple. There is no JVD. No carotid bruits present. No thyroid masses. CVS: First and second heart sounds are normal. There is no S3 present. Regular rate and rhythm. RESPIRATORY: Lungs are clear to auscultation without any rales or rhonchi. ABDOMEN: Soft and non-tender. Bowel sounds are present. There is no hepatosplenomegaly. EXT: There is no palpable edema. Peripheral pulses are present. Skin: No rashes Central Nervous system: General: Alert, awake and Oriented x 3 Speech: Fluent Comprehension: Intact and normal Facial expressions: Normal Cranial Nerves: CN1/Olfactory: Normal CN II/ Optic: Normal, Visual Ashley unreliable CN III, and : SANDRO & EOMI CN V: Normal & intact CN VII: face is symmetric CNVIII: Normal CN XI/X/XI/XII: Intact and Normal Motor: Bulk and Tone is normal. Strength in the right 5/5 Strength in the left 5/5 Sensory: Grossly intact for all the modalities of PP, LT and temp sense Reflexes: 1+ and symmetrical Cerebellar function: Normal finger to nose and heel to laboy testing. Toes: Equivocal Gait: Normal Results - Labs CBC & BMP: 10/28/16 05:57 10/28/16 05:57 Assessment and Plan (1) Intractable migraine Status: Acute Assessment and plan: Check MRV Change Elavil to 75 mg at bedtime Toradol 60 mg IM 1 dose now Phenergan 25 mg IM 1 dose now Also can go home on Toradol 10 mg p.o. 3 times daily. Try Geodon 20 mg IM at bedtime Discussed at length with the patient and she would like to go home tomorrow and see how things goals at home Follow up with me in 2 weeks Current Visit: Yes Qualifiers: Migraine type: without aura Specialty Discharge - Follow Up or Referrals Follow up with: Manoj Guy MD [Physician] - 2 Weeks
--- NOTE | 2016-10-30 13:53 | Magnetic Resonance Report ---
MR angio MRV head wo con Indication: Migraine headache. MR venogram brain Technique: Multiplanar 2-D [id number] noncontrast MR venography of the brain was performed. Vascular MIPS reconstructions obtained. Findings: No flow identified in the left transverse sinus, likely occluded. The left sigmoid sinus and left jugular foramen demonstrate flow but are small in size when compared to the right. The right jugular foramen, sigmoid and transverse sinuses are widely patent. Sagittal sinus and deep cerebral veins are patent as well. Impression: Left transverse sinus thrombosis. PROCEDURE INTERPRETED AT [facility] DEPARTMENT OF RADIOLOGY Final Report Signed by: Angel Barksdale M.D.
--- NOTE | 2016-10-30 15:53 | Hospitalist Progress Note ---
Assessment and Plan (1) Intractable headache Status: Acute Assessment and plan: Neurology assisting MRI and MRA without acute process Difficulty with multiple medications for various reasons S/p occipital nerve block by pain management 10/28/16, with no relief LP was negative Toradol seems to help Current Visit: Yes (2) Dysesthesia Status: Acute Current Visit: Yes (3) Blurred vision Status: Acute Current Visit: Yes Hospitalist: Subjective Interval history: No acute events overnight. Headache is better today secondary to toradol. She reports not being able to sleep last night due to pain. The plan is for discharge tomorrow. Exam - Constitutional Vitals: Period Temp Pulse Resp BP Sys/Araiza Pulse Ox Last 24 Hr 96.7 F-98.6 F 60-104 15-20 106-134/65-86 93-99 General appearance: normal weight - Head Head exam: Present: normocephalic, atraumatic - Eye Eye exam: Present: EOMI Pupils: Present: SANDRO - ENT ENT exam: Present: normal exam - Neck Neck exam: Present: normal inspection - Respiratory Respiratory exam: Present: clear to auscultation bilaterally. Absent: rhonchi, wheezes - Cardiovascular Cardiovascular exam: Present: regular rate and rhythm - GI/Abdominal GI/Abdominal exam: Present: normal bowel sounds, soft. Absent: tenderness, rebound - Extremities Exam Extremities exam: Present: normal inspection - Back Exam Back exam: Present: normal inspection - Neurological Exam Neurological exam: Present: alert, oriented X3 - Psychiatric Psychiatric exam: Present: normal affect, normal mood - Skin Skin exam: Present: warm, intact Results - Labs CBC & BMP: 10/28/16 05:57 10/28/16 05:57 Specialty Discharge - Follow Up or Referrals Follow up with: Manoj Guy MD [Physician] - 2 Weeks
[2016-10-30] MEDS ORDERED: ZIPRASIDONE 20 MG/1 ML VIAL IM ONE (21:00)
[2016-10-30] MEDS: AMITRIPTYLINE 75 MG TABLET PO SCH (21:09)
[2016-10-30] MEDS: HEPARIN DRIP 25,000 UNITS/500 ML PREMIX IV SCH (21:10)
[2016-10-31] MEDS: methylPREDNISolone SOD SUC 125 MG/2 ML VIAL IV SCH (04:32)
[2016-10-31] MEDS: RIZATRIPTAN ODT 5 MG TABLET PO PRN (08:15)
[2016-10-31] MEDS: PROMETHAZINE 25 MG TABLET PO PRN (08:15)
[2016-10-31] MEDS: NAPROXEN 500 MG TABLET PO PRN (08:15)
[2016-10-31] MEDS: NYSTATIN 500,000 UNIT/5 ML UDCUP SWISH/SWAL SCH ×4 (10:51→21:28)
[2016-10-31] MEDS: POLYETHYLENE GLYCOL POWDER 17 GM PACK PO SCH (10:51)
[2016-10-31] MEDS: amLODIPine 5 MG TABLET PO SCH (10:51)
--- NOTE | 2016-10-31 12:00 | Neurology Progress Note ---
Neurology - PN : Subjective Interval history: Ms. Tripathi seems to be doing a little better. Headache is still there. MRV revealed left transverse sinus thrombosis. Patient is on IV heparin Exam (Progress Note) - Constitutional Vitals: Period Temp Pulse Resp BP Sys/Araiza Pulse Ox Last 24 Hr 96.4 F-98.6 F 65-100 14-20 118-134/59-86 94-100 Exam: GENERAL: Patient is in no acute distress. NECK: Neck is supple. There is no JVD. No carotid bruits present. No thyroid masses. CVS: First and second heart sounds are normal. There is no S3 present. Regular rate and rhythm. RESPIRATORY: Lungs are clear to auscultation without any rales or rhonchi. ABDOMEN: Soft and non-tender. Bowel sounds are present. There is no hepatosplenomegaly. EXT: There is no palpable edema. Peripheral pulses are present. Skin: No rashes Central Nervous system: General: Alert, awake and Oriented x 3 Speech: Fluent Comprehension: Intact and normal Facial expressions: Normal Cranial Nerves: CN1/Olfactory: Normal CN II/ Optic: Normal, Visual Ashley unreliable CN III, and : SANDRO & EOMI CN V: Normal & intact CN VII: face is symmetric CNVIII: Normal CN XI/X/XI/XII: Intact and Normal Motor: Bulk and Tone is normal. Strength in the right 5/5 Strength in the left 5/5 Sensory: Grossly intact for all the modalities of PP, LT and temp sense Reflexes: 1+ and symmetrical Cerebellar function: Normal finger to nose and heel to laboy testing. Toes: Equivocal Gait: Normal Results - Labs CBC & BMP: 10/28/16 05:57 10/28/16 05:57 Assessment and Plan (1) Intractable migraine Status: Acute Assessment and plan: Continue current management Current Visit: Yes Qualifiers: Migraine type: without aura (2) Transverse sinus thrombosis Status: Acute Assessment and plan: Continue IV heparin Check FRITZ, sed rate, RA, SSB and SSA Hypercoagulable state workup has been ordered Add Coumadin 5 mg p.o. daily Check PT and INR daily Current Visit: Yes Specialty Discharge - Follow Up or Referrals Follow up with: Manoj Guy MD [Physician] - 2 Weeks
--- NOTE | 2016-10-31 14:21 | Hospitalist Progress Note ---
Assessment and Plan (1) Intractable headache Status: Acute Assessment and plan: Neurology assisting MRI and MRA without acute process Difficulty with multiple medications for various reasons S/p occipital nerve block by pain management 10/28/16, with no relief LP was negative Toradol seems to help Current Visit: Yes (2) Dysesthesia Status: Acute Current Visit: Yes (3) Blurred vision Status: Acute Current Visit: Yes (4) Transverse sinus thrombosis Status: Acute Assessment and plan: Started on heparin infusion Hypercoag work-up initiated Dr. Guy has started coumadin Current Visit: Yes Hospitalist: Subjective Interval history: No acute events overnight. Headache is better today but still present. MR venogram with left transverse sinus thrombus Exam - Constitutional Vitals: Period Temp Pulse Resp BP Sys/Araiza Pulse Ox Last 24 Hr 96.4 F-98.4 F 65-100 14-20 118-134/59-81 94-100 General appearance: normal weight - Head Head exam: Present: normocephalic, atraumatic - Eye Eye exam: Present: EOMI Pupils: Present: SANDRO - ENT ENT exam: Present: normal exam - Neck Neck exam: Present: normal inspection - Respiratory Respiratory exam: Present: clear to auscultation bilaterally. Absent: rhonchi, wheezes - Cardiovascular Cardiovascular exam: Present: regular rate and rhythm - GI/Abdominal GI/Abdominal exam: Present: normal bowel sounds, soft. Absent: tenderness, rebound - Extremities Exam Extremities exam: Present: normal inspection - Back Exam Back exam: Present: normal inspection - Neurological Exam Neurological exam: Present: alert, oriented X3 - Psychiatric Psychiatric exam: Present: normal affect, normal mood - Skin Skin exam: Present: warm, intact Results - Labs CBC & BMP: 10/28/16 05:57 10/28/16 05:57 Specialty Discharge - Follow Up or Referrals Follow up with: Manoj Guy MD [Physician] - 2 Weeks
[2016-10-31 16:28] LABS: PT Patient Result 10.9 SECS
[2016-10-31] MEDS: HEPARIN DRIP 25,000 UNITS/500 ML PREMIX IV SCH (18:19)
[2016-10-31] MEDS: WARFARIN 5 MG TABLET PO SCH (18:47)
[2016-10-31] MEDS: AMITRIPTYLINE 75 MG TABLET PO SCH (21:28)
[2016-11-01] MEDS: PROMETHAZINE 25 MG TABLET PO PRN (01:09)
[2016-11-01] MEDS: NAPROXEN 500 MG TABLET PO PRN (01:09)
[2016-11-01 05:16] LABS: PT Patient Result 10.9 SECS
[2016-11-01] MEDS: NYSTATIN 500,000 UNIT/5 ML UDCUP SWISH/SWAL SCH ×4 (08:20→21:00)
[2016-11-01] MEDS: POLYETHYLENE GLYCOL POWDER 17 GM PACK PO SCH (08:20)
[2016-11-01] MEDS: amLODIPine 5 MG TABLET PO SCH (08:20)
[2016-11-01] MEDS ORDERED: KETOROLAC 15 MG/1 ML VIAL IV ONE (11:06)
--- NOTE | 2016-11-01 13:00 | Neurology Progress Note ---
Neurology - PN : Subjective Interval history: Still having some headaches. Required Toradol today. INR is 1. No other new problems reported. Vision is okay. No tingling numbness or weakness. Patient reported that her biological father, his mother and sister because of blood clots. Exam (Progress Note) - Constitutional Vitals: Period Temp Pulse Resp BP Sys/Araiza Pulse Ox Last 24 Hr 97.4 F-98.5 F 73-113 18-20 121-133/68-92 94-100 Exam: GENERAL: Patient is in no acute distress. NECK: Neck is supple. There is no JVD. No carotid bruits present. No thyroid masses. CVS: First and second heart sounds are normal. There is no S3 present. Regular rate and rhythm. RESPIRATORY: Lungs are clear to auscultation without any rales or rhonchi. ABDOMEN: Soft and non-tender. Bowel sounds are present. There is no hepatosplenomegaly. EXT: There is no palpable edema. Peripheral pulses are present. Skin: No rashes Central Nervous system: General: Alert, awake and Oriented x 3 Speech: Fluent Comprehension: Intact and normal Facial expressions: Normal Cranial Nerves: CN1/Olfactory: Normal CN II/ Optic: Normal, Visual Ashley unreliable CN III, and : SANDRO & EOMI CN V: Normal & intact CN VII: face is symmetric CNVIII: Normal CN XI/X/XI/XII: Intact and Normal Motor: Bulk and Tone is normal. Strength in the right 5/5 Strength in the left 5/5 Sensory: Grossly intact for all the modalities of PP, LT and temp sense Reflexes: 1+ and symmetrical Cerebellar function: Normal finger to nose and heel to laboy testing. Toes: Equivocal Gait: Normal Results - Labs CBC & BMP: 10/28/16 05:57 10/28/16 05:57 Assessment and Plan (1) Intractable migraine Status: Acute Assessment and plan: Continue current management Current Visit: Yes Qualifiers: Migraine type: without aura (2) Transverse sinus thrombosis Status: Acute Assessment and plan: Continue IV heparin Cont coumadin and check PT INR daily Home when INR is therapeutic Current Visit: Yes Specialty Discharge - Follow Up or Referrals Follow up with: Manoj Guy MD [Physician] - 2 Weeks
--- NOTE | 2016-11-01 16:41 | Hospitalist Progress Note ---
Assessment and Plan (1) Intractable headache Status: Acute Assessment and plan: Neurology assisting MRI and MRA without acute process Difficulty with multiple medications for various reasons S/p occipital nerve block by pain management 10/28/16, with no relief LP was negative Toradol seems to help Current Visit: Yes (2) Dysesthesia Status: Acute Current Visit: Yes (3) Blurred vision Status: Acute Current Visit: Yes (4) Transverse sinus thrombosis Status: Acute Assessment and plan: Started on heparin infusion Hypercoag work-up initiated Dr. Guy has started coumadin Current Visit: Yes Hospitalist: Subjective Interval history: Patient complaining of all over body aches and low back pain at the site of her previous LP. Exam - Constitutional Vitals: Period Temp Pulse Resp BP Sys/Araiza Pulse Ox Last 24 Hr 97.4 F-98.5 F 73-116 18-20 109-133/68-92 94-100 General appearance: normal weight - Head Head exam: Present: normocephalic, atraumatic - Eye Eye exam: Present: EOMI Pupils: Present: SANDRO - ENT ENT exam: Present: normal exam - Neck Neck exam: Present: normal inspection - Respiratory Respiratory exam: Present: clear to auscultation bilaterally. Absent: wheezes - Cardiovascular Cardiovascular exam: Present: regular rate and rhythm - GI/Abdominal GI/Abdominal exam: Present: normal bowel sounds, soft. Absent: tenderness, rebound - Extremities Exam Extremities exam: Present: normal inspection - Back Exam Back exam: Present: normal inspection - Neurological Exam Neurological exam: Present: alert, oriented X3 - Psychiatric Psychiatric exam: Present: normal affect, normal mood - Skin Skin exam: Present: warm, intact Results - Labs CBC & BMP: 10/28/16 05:57 10/28/16 05:57 Specialty Discharge - Follow Up or Referrals Follow up with: Manoj Guy MD [Physician] - 11/17/16 9:30 am
[2016-11-01] MEDS: WARFARIN 5 MG TABLET PO SCH (17:59)
[2016-11-01] MEDS: KETOROLAC 15 MG/1 ML VIAL IM SCH ×2 (17:59→23:46)
[2016-11-01] MEDS: HEPARIN DRIP 25,000 UNITS/500 ML PREMIX IV SCH (18:47)
[2016-11-01] MEDS: AMITRIPTYLINE 75 MG TABLET PO SCH (21:01)
[2016-11-02] MEDS: HEPARIN DRIP 25,000 UNITS/500 ML PREMIX IV SCH ×2 (02:24→18:14)
[2016-11-02 06:24] LABS: Basophils # 0.1 10*3/uL (0.0-0.2); Basophils % 0.6 % (0.0-0.8); Eosinophils # 0.1 10*3/uL (0.0-0.87); Eosinophils % 1.2 % (0.00-10.9); Hematocrit 37.1 VOL% (35.7-47.0); Hemoglobin 12.5 GM/DL (12.0-16.0); Immature Granulocytes Absolute 0.11 #; Lymphocytes % 45.6 % (21.3-54.2); Mean Corpuscular HGB Conc 33.7 GM/DL (32-36); Mean Corpuscular Hemoglobin 29 PG (27-34); Mean Corpuscular Volume 86.7 FL (87-102); Mean Platelet Volume 12.2 FL (9.6-12.0); Monocytes # 1.1 10*3/uL (0.11-0.8); Monocytes % 9.8 % (1.7-12.7); Neutrophils # 4.5 10*3/uL (1.4-7.4); Neutrophils % 41.8 % (38.7-73.9); Platelet Count 167 T/CUMM (130-400); Red Blood Count 4.28 MC/CUMM (3.8-5.5); Red Cell Distribution Width 14.7 % (9.3-17.3); White Blood Count 10.9 T/CUMM (4-12)
[2016-11-02] MEDS: KETOROLAC 15 MG/1 ML VIAL IM SCH ×4 (06:25→21:32)
[2016-11-02 06:53] LABS: Calcium 8.4 MG/DL (8.5-10.1); Osmolality,Calculated 281.4 MOS/KG (273-304); Potassium 4.4 MMOL/L (3.5-5.1)
[2016-11-02] MEDS: POLYETHYLENE GLYCOL POWDER 17 GM PACK PO SCH (08:28)
[2016-11-02] MEDS: amLODIPine 5 MG TABLET PO SCH (10:12)
[2016-11-02] MEDS: NYSTATIN 500,000 UNIT/5 ML UDCUP SWISH/SWAL SCH ×4 (10:12→21:32)
--- NOTE | 2016-11-02 15:17 | Hospitalist Progress Note ---
Assessment and Plan (1) Intractable headache Status: Acute Assessment and plan: Neurology assisting MRI and MRA without acute process Difficulty with multiple medications for various reasons S/p occipital nerve block by pain management 10/28/16, with no relief LP was negative Toradol seems to help Current Visit: Yes (2) Dysesthesia Status: Acute Current Visit: Yes (3) Blurred vision Status: Acute Assessment and plan: Seems better now Ophthamology appointment today Current Visit: Yes (4) Transverse sinus thrombosis Status: Acute Assessment and plan: Continue heparin infusion and bridge to coumadin Hypercoag work-up initiated Given patient's family history of multiple family member deaths from clots, will consult hematology to evaluate Current Visit: Yes Hospitalist: Subjective Interval history: No acute events overnight. Headache is better. She reports a raised bruise at site of her previous lp, she associates this site with pain and difficulty urinating. Exam - Constitutional Vitals: Period Temp Pulse Resp BP Sys/Araiza Pulse Ox Last 24 Hr 97.0 F-98.6 F 78-116 18-20 103-123/62-80 96-100 General appearance: normal weight - Head Head exam: Present: normocephalic, atraumatic - Eye Eye exam: Present: EOMI Pupils: Present: SANDRO - ENT ENT exam: Present: normal exam - Neck Neck exam: Present: normal inspection - Respiratory Respiratory exam: Present: clear to auscultation bilaterally. Absent: wheezes - Cardiovascular Cardiovascular exam: Present: regular rate and rhythm - GI/Abdominal GI/Abdominal exam: Present: normal bowel sounds, soft. Absent: tenderness, rebound - Extremities Exam Extremities exam: Present: normal inspection - Back Exam Back exam: Present: normal inspection - Neurological Exam Neurological exam: Present: alert, oriented X3 - Psychiatric Psychiatric exam: Present: normal affect, normal mood - Skin Skin exam: Present: warm, intact Results - Labs CBC & BMP: 11/02/16 05:41 11/02/16 05:41 Specialty Discharge - Follow Up or Referrals Follow up with: Manoj Guy MD [Physician] - 11/17/16 9:30 am
--- NOTE | 2016-11-02 15:53 | Neurology Progress Note ---
Neurology - PN : Subjective Interval history: Patient seems to be doing much better. No new problems reported. Headaches are a lot better. Getting up and walking. Today's INR is pending. Hematology been consulted Exam (Progress Note) - Constitutional Vitals: Period Temp Pulse Resp BP Sys/Araiza Pulse Ox Last 24 Hr 97.0 F-98.6 F 78-116 18-20 103-123/62-80 96-100 Exam: GENERAL: Patient is in no acute distress. NECK: Neck is supple. There is no JVD. No carotid bruits present. No thyroid masses. CVS: First and second heart sounds are normal. There is no S3 present. Regular rate and rhythm. RESPIRATORY: Lungs are clear to auscultation without any rales or rhonchi. ABDOMEN: Soft and non-tender. Bowel sounds are present. There is no hepatosplenomegaly. EXT: There is no palpable edema. Peripheral pulses are present. Skin: No rashes Central Nervous system: General: Alert, awake and Oriented x 3 Speech: Fluent Comprehension: Intact and normal Facial expressions: Normal Cranial Nerves: CN1/Olfactory: Normal CN II/ Optic: Normal, Visual Ashley unreliable CN III, and : SANDRO & EOMI CN V: Normal & intact CN VII: face is symmetric CNVIII: Normal CN XI/X/XI/XII: Intact and Normal Motor: Bulk and Tone is normal. Strength in the right 5/5 Strength in the left 5/5 Sensory: Grossly intact for all the modalities of PP, LT and temp sense Reflexes: 1+ and symmetrical Cerebellar function: Normal finger to nose and heel to laboy testing. Toes: Equivocal Gait: Normal Results - Labs CBC & BMP: 11/02/16 05:41 11/02/16 05:41 Assessment and Plan (1) Intractable migraine Status: Acute Assessment and plan: Continue current management Current Visit: Yes Qualifiers: Migraine type: without aura (2) Transverse sinus thrombosis Status: Acute Assessment and plan: Continue IV heparin Cont coumadin and check PT INR daily Home when INR is therapeutic Agree with hematology consult Current Visit: Yes Specialty Discharge - Follow Up or Referrals Follow up with: Manoj Guy MD [Physician] - 11/17/16 9:30 am
--- NOTE | 2016-11-02 16:07 | CT Report ---
CT lumbar spine wo con Indication: Low back pain. CT LUMBAR SPINE WITHOUT CONTRAST DLP: 636 mGy*cm. One or more of the following dose reduction techniques was used: Automated exposure control, adjustment of the mA and/or kV according the patient size, or use of iterative reconstruction techniques. Comparison: None Technique: Axial noncontrast CT images of the lumbar spine were obtained. Coronal and sagittal reconstructions were provided. Findings: No compression fractures or spondylolisthesis. Disc heights are maintained throughout. Facet joints are unremarkable. No bony encroachment on the canal. No significant disc bulge or canal or foraminal stenosis identified at any level. No paraspinous hematoma. Impression: Negative lumbar spine. PROCEDURE INTERPRETED AT [facility] DEPARTMENT OF RADIOLOGY Final Report Signed by: Angel Barksdale M.D.
[2016-11-02] MEDS: WARFARIN 5 MG TABLET PO SCH (17:12)
[2016-11-02] MEDS: AMITRIPTYLINE 75 MG TABLET PO SCH (21:32)
[2016-11-02] MEDS ORDERED: KETOROLAC 15 MG/1 ML VIAL IV PRN (21:47)
[2016-11-03] MEDS: KETOROLAC 15 MG/1 ML VIAL IV SCH ×4 (03:04→20:56)
[2016-11-03] MEDS: HEPARIN DRIP 25,000 UNITS/500 ML PREMIX IV SCH (06:20)
--- NOTE | 2016-11-03 09:17 | Oncology Consult Note ---
History of Present Illness History of present illness: Ms. Tripathi is a 36 year old female. I was asked to see this patient because of left transverse sinus thrombosis and a family history that included several family members, first-degree and second- degree who suffered cerebral hemorrhages as well as pulmonary emboli. She was admitted with a headache and a history of migraine headaches. She has undergone some testing for thrombophilia. Tests that have returned include a normal protein C and protein S, and normal anti-thrombin 3 activity. Tests that are pending include a factor V Leiden and antiphospholipid antibodies. The patient is on anticoagulation so some of these tests need to be rechecked if she is ever taken off anticoagulation. Protein C and protein S levels were affected by anticoagulation. Additional studies that I am going to order that are not affected by anticoagulation include lupus anticoagulant and prothrombin gene mutation. It is of significant concern that the patient has such a strong history of both cerebrovascular accidents and pulmonary emboli and I will follow her with you. - Medical History Cardio: History of: Hypertension HEENT: History of: HEENT Problems (vocal cord surgery) - Surgical History Abdominal Surgeries: Surgical HX of: Cholecystectomy Reproductive Surgeries: Surgical HX of;: Hysterectomy - Family History Family History: Reports;: Family Stroke, Additional Family History (Migraines) Denies;: Family Diabetes, Family Heart Disease - Social History Smoking Status: Never smoker Frequency of Alcohol Use: None Type of Drug Use: None Marital Status: Single Physical examination: General: The patient is well-developed, well-nourished and in no acute distress. Eyes: Normal lids and conjunctivae. ENT: Her oral mucosa and pharynx are normal. Her trachea is midline. She has no neck masses. Lungs: Breath sounds are normal without rubs, rales or rhonchi and there is symmetrical unlabored chest motion with respiration Cardiovascular: Her heart rhythm is regular without murmur, gallop or rub. There is no jugular venous distention, clubbing, cyanosis or edema. Abdomen: I palpate no abdominal masses, organomegaly, distention, tenderness or ascites. Musculoskeletal: There is no focal muscle atrophy or bone or joint deformity or significant arthritis of the hands. Neurologic: Cranial nerves II through XII are intact and there are no focal neurologic deficits. Nodes: There is no submental, submandibular, cervical or supraclavicular or axillary adenopathy. Skin: Cursory examination is normal. Psychiatric: She is oriented to time, place, person and situation with normal mood and affect. I agree that thrombophilia of some type needs to be considered in view of her family history. I will follow her with you. Thank you for consulting me. Home Medications Medication Instructions Recorded Confirmed Type Amitriptyline [Elavil] 10 mg PO Q6H #12 tablet 10/23/16 10/25/16 Rx Lisinopril/Hydrochlorothiazide 1 each PO DAILY #30 tablet 10/23/16 10/25/16 Rx [Lisinopril-Hctz 20-25 mg Tab] Promethazine Tab [Phenergan Tab] 25 mg PO Q6H #12 tablet 10/23/16 10/25/16 Rx Allergies Allergy/AdvReac Type Severity Reaction Status Date / Time hydrocodone Allergy ANAPHYLAXIS Verified 10/23/16 20:32 sulfamethoxazole Allergy ANAPHYLAXIS Verified 10/23/16 20:32 [From Bactrim] trimethoprim [From Bactrim] Allergy ANAPHYLAXIS Verified 10/23/16 20:32 cefdinir [From Omnicef] AdvReac Nausea Verified 10/23/16 20:32 Medical,Surgical,& Family Hx - Medical History Cardio: History of: Hypertension HEENT: History of: 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) - Surgical History Abdominal Surgeries: Surgical HX of: Cholecystectomy Reproductive Surgeries: Surgical HX of;: Gynecologic Surgery, Hysterectomy - Family History Family History: Reports;: Family Stroke, Additional Family History (Migraines) Denies;: Family Diabetes, Family Heart Disease - Social History Smoking Status: Never smoker Frequency of Alcohol Use: None Type of Drug Use: None Exam - Constitutional Vitals: Period Temp Pulse Resp BP Sys/Araiza Pulse Ox Last 24 Hr 97 F-97.4 F 98-114 18-20 108-127/61-74 96-99 Results - Labs CBC & BMP: 11/02/16 05:41 11/02/16 05:41 Specialty Discharge - Follow Up or Referrals Follow up with: Manoj Guy MD [Physician] - 11/17/16 9:30 am
[2016-11-03] MEDS: NYSTATIN 500,000 UNIT/5 ML UDCUP SWISH/SWAL SCH ×4 (09:57→21:05)
[2016-11-03] MEDS: POLYETHYLENE GLYCOL POWDER 17 GM PACK PO SCH (09:57)
[2016-11-03] MEDS: amLODIPine 5 MG TABLET PO SCH (09:58)
--- NOTE | 2016-11-03 10:36 | Hospitalist Progress Note ---
Assessment and Plan (1) Headache Status: Acute Assessment and plan: She is comfortable today with no headache. She continues to be followed by neurology. Current Visit: Yes (2) Transverse sinus thrombosis Status: Acute Assessment and plan: She is undergoing evaluation by hematology for possible coagulopathy as the cause of her transverse sinus thrombosis. Evaluation so far has been negative. Current Visit: Yes Hospitalist: Subjective Interval history: Patient states that she feels considerably better. She states that as long as she continues on her present medications she does not experience headache. She is being followed by both neurology and hematology. She is undergoing a coagulation workup by hematology. Exam - Constitutional Vitals: Period Temp Pulse Resp BP Sys/Araiza Pulse Ox Last 24 Hr 97 F-97.4 F 98-114 18-20 108-127/61-74 96-99 General appearance: no acute distress - Head Head exam: Present: normal inspection - Neck Neck exam: Present: normal inspection - Respiratory Respiratory exam: Present: clear to auscultation bilaterally - Cardiovascular Cardiovascular exam: Present: regular rate and rhythm - GI/Abdominal GI/Abdominal exam: Present: normal bowel sounds, soft - Extremities Exam Extremities exam: Present: normal inspection - Neurological Exam Neurological exam: Present: alert, oriented X3 - Psychiatric Psychiatric exam: Present: normal affect, normal mood - Skin Skin exam: Present: normal color, warm, intact Results - Labs CBC & BMP: 11/02/16 05:41 11/02/16 05:41 Specialty Discharge - Follow Up or Referrals Follow up with: Manoj Guy MD [Physician] - 11/17/16 9:30 am
[2016-11-03 13:26] LABS: Protein S Activity Plasma 108 % (50 - 160)
--- NOTE | 2016-11-03 15:28 | Neurology Progress Note ---
Neurology - PN : Subjective Interval history: Ms. Tripathi seems to be doing really well. Headaches are under much control. Occasionally she gets headaches. Walking around really well. Eating good. Sleeping well. Exam (Progress Note) - Constitutional Vitals: Period Temp Pulse Resp BP Sys/Araiza Pulse Ox Last 24 Hr 97 F-97.7 F 98-114 18-20 108-127/61-74 96-99 Exam: GENERAL: Patient is in no acute distress. NECK: Neck is supple. There is no JVD. No carotid bruits present. No thyroid masses. CVS: First and second heart sounds are normal. There is no S3 present. Regular rate and rhythm. RESPIRATORY: Lungs are clear to auscultation without any rales or rhonchi. ABDOMEN: Soft and non-tender. Bowel sounds are present. There is no hepatosplenomegaly. EXT: There is no palpable edema. Peripheral pulses are present. Skin: No rashes Central Nervous system: General: Alert, awake and Oriented x 3 Speech: Fluent Comprehension: Intact and normal Facial expressions: Normal Cranial Nerves: CN1/Olfactory: Normal CN II/ Optic: Normal, Visual Ashley unreliable CN III, and : SANDRO & EOMI CN V: Normal & intact CN VII: face is symmetric CNVIII: Normal CN XI/X/XI/XII: Intact and Normal Motor: Bulk and Tone is normal. Strength in the right 5/5 Strength in the left 5/5 Sensory: Grossly intact for all the modalities of PP, LT and temp sense Reflexes: 1+ and symmetrical Cerebellar function: Normal finger to nose and heel to laboy testing. Toes: Equivocal Gait: Normal Results - Labs CBC & BMP: 11/02/16 05:41 11/02/16 05:41 Assessment and Plan (1) Intractable migraine Status: Acute Assessment and plan: Continue current management Current Visit: Yes Qualifiers: Migraine type: without aura (2) Transverse sinus thrombosis Status: Acute Assessment and plan: Continue IV heparin Cont coumadin and check PT INR daily Okay to go home when INR is therapeutic between 2 and 3 Follow-up with me in 2-3 weeks Current Visit: Yes Specialty Discharge - Follow Up or Referrals Follow up with: Manoj Guy MD [Physician] - 11/17/16 9:30 am
[2016-11-03 16:00] LABS: INR 1.3; PT Patient Result 13.7 SECS
[2016-11-03] MEDS: WARFARIN 5 MG TABLET PO SCH (17:53)
[2016-11-03] MEDS: AMITRIPTYLINE 75 MG TABLET PO SCH (21:05)
[2016-11-04] MEDS: KETOROLAC 15 MG/1 ML VIAL IV SCH ×4 (04:34→23:45)
--- NOTE | 2016-11-04 09:37 | Oncology Progress Note ---
Oncology Subjective PN Interval history: Coag. studies pending. Factor V Leiden mutation is negative. The patient has [employer] [place] and [employer] [place] and I probably will not be able to follow her here. She will probably need to get a thread twister in [place] to follow-up on her situation since she is going to need additional testing for thrombophilia if she ever gets off anticoagulants. I will sign off. Exam - Constitutional Vitals: Period Temp Pulse Resp BP Sys/Araiza Pulse Ox Last 24 Hr 97.0 F-98.2 F 101-111 18-20 104-132/58-68 96-100 Results - Labs CBC & BMP: 11/05/16 05:01 11/02/16 05:41 Specialty Discharge - Follow Up or Referrals Follow up with: Manoj Guy MD [Physician] - 11/17/16 9:30 am
--- NOTE | 2016-11-04 09:38 | Hospitalist Progress Note ---
Assessment and Plan (1) Headache Status: Acute Assessment and plan: She is comfortable today with no headache. She continues to be followed by neurology. Current Visit: Yes (2) Transverse sinus thrombosis Status: Acute Assessment and plan: She is undergoing evaluation by hematology for possible coagulopathy as the cause of her transverse sinus thrombosis. Evaluation so far has been negative. She is presently being treated with both heparin and warfarin. Her INR today was 1.3. I have increased her warfarin to 7.5 mg p.o. daily. Current Visit: Yes Hospitalist: Subjective Interval history: She is doing well with no headache. She remains hospitalized on intravenous heparin while her warfarin is being adjusted. She will be ready for discharge when her INR is between 2.0-3.0. I have increased her warfarin to 7.5 mg p.o. daily. Exam - Constitutional Vitals: Period Temp Pulse Resp BP Sys/Araiza Pulse Ox Last 24 Hr 97.0 F-98.2 F 101-111 18-20 104-132/58-68 96-100 General appearance: no acute distress - Head Head exam: Present: normal inspection - Neck Neck exam: Present: normal inspection - Respiratory Respiratory exam: Present: clear to auscultation bilaterally - Cardiovascular Cardiovascular exam: Present: regular rate and rhythm - GI/Abdominal GI/Abdominal exam: Present: normal bowel sounds, soft, other (Nontender with no palpable masses or hepatosplenomegaly.) - Extremities Exam Extremities exam: Present: normal inspection - Neurological Exam Neurological exam: Present: alert, oriented X3 - Psychiatric Psychiatric exam: Present: normal affect, normal mood - Skin Skin exam: Present: normal color, warm, intact Results - Labs CBC & BMP: 11/02/16 05:41 11/02/16 05:41 Specialty Discharge - Follow Up or Referrals Follow up with: Manoj Guy MD [Physician] - 11/17/16 9:30 am
[2016-11-04] MEDS: POLYETHYLENE GLYCOL POWDER 17 GM PACK PO SCH (09:48)
[2016-11-04] MEDS: NYSTATIN 500,000 UNIT/5 ML UDCUP SWISH/SWAL SCH ×4 (09:49→20:31)
[2016-11-04] MEDS: amLODIPine 5 MG TABLET PO SCH (09:49)
[2016-11-04 10:10] LABS: INR 1.3; PT Patient Result 14.4 SECS
[2016-11-04 10:11] LABS: F5DNA Reviewed By SEE COMMENTS; Factor V Leiden (R506Q) Mutati Negative (Negative)
[2016-11-04 15:17] LABS: Phospholipid Ab IgM, S < 9.4 MPL
[2016-11-04] MEDS: HEPARIN DRIP 25,000 UNITS/500 ML PREMIX IV SCH (16:36)
[2016-11-04] MEDS: PROMETHAZINE 25 MG TABLET PO PRN (17:30)
[2016-11-04] MEDS: WARFARIN 7.5 MG TABLET PO SCH (17:38)
[2016-11-04] MEDS: AMITRIPTYLINE 75 MG TABLET PO SCH (20:31)
[2016-11-05 05:33] LABS: Hematocrit 33.8 VOL% (35.7-47.0); Hemoglobin 11.2 GM/DL (12.0-16.0)
[2016-11-05] MEDS: KETOROLAC 15 MG/1 ML VIAL IV SCH ×4 (07:20→21:36)
[2016-11-05] MEDS: NYSTATIN 500,000 UNIT/5 ML UDCUP SWISH/SWAL SCH ×4 (08:08→21:35)
[2016-11-05] MEDS: amLODIPine 5 MG TABLET PO SCH (08:09)
[2016-11-05] MEDS: POLYETHYLENE GLYCOL POWDER 17 GM PACK PO SCH (09:08)
--- NOTE | 2016-11-05 09:50 | Hospitalist Progress Note ---
Assessment and Plan - Time spent with patient Time spent with patient: Greater than 30 minutes (1) Headache Status: Acute Current Visit: Yes (2) Hypertension Status: Acute Current Visit: Yes (3) Intractable headache Status: Acute Current Visit: Yes (4) Transverse sinus thrombosis Status: Acute Assessment and plan: We have continuing on anticoagulation with IV heparin and oral warfarin. Continue daily INR to therapeutic range is achieved. Pain controlled on current regimen of IV Toradol every 6 hourly. Will probably need to transition to oral and titrate doses up until her pain is controlled. DVT prophylaxis -continue on heparin and Coumadin. Neurology follow-up Current Visit: Yes Hospitalist: Subjective Interval history: Being managed for acute sinus vein thrombosis, on IV heparin. INR still subtherapeutic. She still complains of headaches which is controlled by scheduled IV Toradol, she is anxious about how to manage her headaches upon discharge. No fever No new neurological deficits. Exam - Constitutional Vitals: Period Temp Pulse Resp BP Sys/Araiza Pulse Ox Last 24 Hr 96.8 F-98.5 F 77-112 18-20 101-118/57-75 18-98 Exam: General appearance: no acute distress - Head Head exam: Present: normal inspection - Neck Neck exam: Present: normal inspection - Respiratory Respiratory exam: Present: clear to auscultation bilaterally - Cardiovascular Cardiovascular exam: Present: regular rate and rhythm - GI/Abdominal GI/Abdominal exam: Present: normal bowel sounds, soft, other (Nontender with no palpable masses or hepatosplenomegaly.) - Extremities Exam Extremities exam: Present: normal inspection - Neurological Exam Neurological exam: Present: alert, oriented X3 - Psychiatric Psychiatric exam: Present: normal affect, normal mood - Skin Skin exam: Present: normal color, warm, intact Results - Labs CBC & BMP: 11/05/16 05:01 11/02/16 05:41 Lab Results: I have reviewed the past 24 hour labs - Diagnostic Findings Procedure: CT: report reviewed by me, MRI: report reviewed by me Specialty Discharge - Follow Up or Referrals Follow up with: Manoj Guy MD [Physician] - 11/17/16 9:30 am
[2016-11-05] MEDS: WARFARIN 7.5 MG TABLET PO SCH (18:36)
[2016-11-05] MEDS: AMITRIPTYLINE 75 MG TABLET PO SCH (21:35)
[2016-11-06] MEDS: KETOROLAC 15 MG/1 ML VIAL IV SCH ×2 (02:57→09:08)
[2016-11-06] MEDS: HEPARIN DRIP 25,000 UNITS/500 ML PREMIX IV SCH (02:58)
[2016-11-06 06:12] LABS: Basophils % 0.4 % (0.0-0.8); Eosinophils # 0.2 10*3/uL (0.0-0.87); Eosinophils % 2.8 % (0.00-10.9); Hematocrit 34.4 VOL% (35.7-47.0); Hemoglobin 11.3 GM/DL (12.0-16.0); Immature Granulocytes % 1.6 %; Immature Granulocytes Absolute 0.14 #; Lymphocytes # 2.8 10*3/uL (1.4-4.0); Lymphocytes % 32.4 % (21.3-54.2); Mean Corpuscular HGB Conc 32.8 GM/DL (32-36); Mean Corpuscular Hemoglobin 29 PG (27-34); Mean Corpuscular Volume 87.3 FL (87-102); Mean Platelet Volume 11.7 FL (9.6-12.0); Monocytes # 1.1 10*3/uL (0.11-0.8); Monocytes % 12.6 % (1.7-12.7); Neutrophils # 4.3 10*3/uL (1.4-7.4); Neutrophils % 50.2 % (38.7-73.9); Platelet Count 170 T/CUMM (130-400); Red Blood Count 3.94 MC/CUMM (3.8-5.5); Red Cell Distribution Width 15.2 % (9.3-17.3); White Blood Count 8.5 T/CUMM (4-12)
[2016-11-06 07:01] LABS: Calcium 8.1 MG/DL (8.5-10.1); Osmolality,Calculated 275.7 MOS/KG (273-304); Potassium 4.4 MMOL/L (3.5-5.1)
[2016-11-06] MEDS: NYSTATIN 500,000 UNIT/5 ML UDCUP SWISH/SWAL SCH ×4 (09:08→20:30)
[2016-11-06] MEDS: amLODIPine 5 MG TABLET PO SCH (09:08)
[2016-11-06] MEDS: POLYETHYLENE GLYCOL POWDER 17 GM PACK PO SCH (09:11)
[2016-11-06] MEDS ORDERED: KETOROLAC 15 MG/1 ML VIAL IV PRN (10:57)
[2016-11-06] MEDS ORDERED: traMADol 50 MG TABLET PO SCH (11:00)
--- NOTE | 2016-11-06 11:02 | Hospitalist Progress Note ---
Assessment and Plan - Time spent with patient Time spent with patient: Greater than 30 minutes (1) Headache Status: Acute Current Visit: Yes (2) Hypertension Status: Acute Current Visit: Yes (3) Intractable headache Status: Acute Current Visit: Yes (4) Transverse sinus thrombosis Status: Acute Assessment and plan: We will continue oral anticoagulation with IV heparin and oral warfarin. However increase warfarin to 10 mg at bedtime and continue daily INR till therapeutic range is achieved. Pain controlled on current regimen of IV Toradol every 6 hourly. Will transition to oral Toradol 10 mg every 6 hourly and titrate doses up until her pain is controlled. Change IV Toradol to as needed DVT prophylaxis -continue on heparin and Coumadin. Neurology follow-up Current Visit: Yes Hospitalist: Subjective Interval history: Her pain is controlled. We will try to transition to oral medication for her pain control preparatory to home discharge, change to oral Toradol and change IV doses to as needed She is still with subtherapeutic INR despite being on 7.5 mg. This may be due to interaction with her other meds. She however complains of blood in her stool despite subtherapeutic INR, I suspect that this may be due to heparin, her H&H has however remained stable.. At this point we will increase her Coumadin dose to 10 mg at bedtime and hope that this would increase the INR. No fever Exam - Constitutional Vitals: Period Temp Pulse Resp BP Sys/Araiza Pulse Ox Last 24 Hr 97.4 F-98.2 F 76-108 17-22 103-137/61-82 97-100 Exam: General appearance: no acute distress - Head Head exam: Present: normal inspection - Neck Neck exam: Present: normal inspection - Respiratory Respiratory exam: Present: clear to auscultation bilaterally - Cardiovascular Cardiovascular exam: Present: regular rate and rhythm - GI/Abdominal GI/Abdominal exam: Present: normal bowel sounds, soft, other (Nontender with no palpable masses or hepatosplenomegaly.) - Extremities Exam Extremities exam: Present: normal inspection - Neurological Exam Neurological exam: Present: alert, oriented X3 - Psychiatric Psychiatric exam: Present: normal affect, normal mood - Skin Skin exam: Present: normal color, warm, intact Results - Labs CBC & BMP: 11/06/16 05:24 11/06/16 05:24 Lab Results: I have reviewed the past 24 hour labs Specialty Discharge - Follow Up or Referrals Follow up with: Manoj Guy MD [Physician] - 11/17/16 9:30 am
[2016-11-06] MEDS ORDERED: KETOROLAC 10 MG TABLET PO SCH (12:00)
[2016-11-06 12:59] LABS: INR 1.7; PT Patient Result 18.2 SECS
[2016-11-06] MEDS: WARFARIN 10 MG TABLET PO SCH (18:22)
[2016-11-06] MEDS: AMITRIPTYLINE 75 MG TABLET PO SCH (20:30)
[2016-11-06] MEDS: KETOROLAC 10 MG TABLET PO SCH (20:30)
[2016-11-07] MEDS: KETOROLAC 10 MG TABLET PO SCH ×4 (03:03→21:07)
[2016-11-07] MEDS: POLYETHYLENE GLYCOL POWDER 17 GM PACK PO SCH (08:47)
[2016-11-07] MEDS: NYSTATIN 500,000 UNIT/5 ML UDCUP SWISH/SWAL SCH ×4 (08:47→21:08)
[2016-11-07] MEDS: amLODIPine 5 MG TABLET PO SCH (08:49)
--- NOTE | 2016-11-07 09:08 | Hospitalist Progress Note ---
Assessment and Plan - Time spent with patient Time spent with patient: Greater than 30 minutes (1) Headache Status: Acute Current Visit: Yes (2) Hypertension Status: Acute Current Visit: Yes (3) Intractable headache Status: Acute Current Visit: Yes (4) Transverse sinus thrombosis Status: Acute Assessment and plan: We will continue oral anticoagulation with IV heparin and oral warfarin. Now on warfarin 10 mg at bedtime and monitoring daily INR till therapeutic range is achieved. Pain controlled on oral Toradol 10 mg every 6 hourly and titrate doses down as her pain continues to improve. May keep IV Toradol to as needed We have asked for repeat stool occult blood to rule out GI bleed. Monitor H&H DVT prophylaxis -continue on heparin and Coumadin. Neurology follow-up Current Visit: Yes Hospitalist: Subjective Interval history: Young lady admitted for transverse sinus thrombosis who presented with severe headaches requiring IV Toradol scheduled so for, we are now gradually transitioning to oral pain meds, she is tolerating it well. Headache is not worsening. There is no fever. There was some concern for GI bleed based on patient's report, no drop in hematocrit. Last stool occult blood testing of 11/05 was negative for occult blood in stool. INR today is 1.7, she is currently on 10 mg of warfarin. Exam - Constitutional Vitals: Period Temp Pulse Resp BP Sys/Araiza Pulse Ox Last 24 Hr 96.7 F-98.1 F 90-113 18-20 95-113/61-67 97-100 Exam: General appearance: no acute distress - Head Head exam: Present: normal inspection - Neck Neck exam: Present: normal inspection - Respiratory Respiratory exam: Present: clear to auscultation bilaterally - Cardiovascular Cardiovascular exam: Present: regular rate and rhythm - GI/Abdominal GI/Abdominal exam: Present: normal bowel sounds, soft, other (Nontender with no palpable masses or hepatosplenomegaly.) - Extremities Exam Extremities exam: Present: normal inspection - Neurological Exam Neurological exam: Present: alert, oriented X3 - Psychiatric Psychiatric exam: Present: normal affect, normal mood - Skin Skin exam: Present: normal color, warm, intact Results - Labs CBC & BMP: 11/06/16 05:24 11/06/16 05:24 Lab Results: I have reviewed the past 24 hour labs Specialty Discharge - Follow Up or Referrals Follow up with: Manoj Guy MD [Physician] - 11/17/16 9:30 am
[2016-11-07] MEDS: HEPARIN DRIP 25,000 UNITS/500 ML PREMIX IV SCH ×2 (15:41→22:51)
[2016-11-07 18:16] LABS: INR 2.1
[2016-11-07 18:22] LABS: PT Patient Result 22.8 SECS
[2016-11-07] MEDS: WARFARIN 10 MG TABLET PO SCH (18:24)
[2016-11-07] MEDS: AMITRIPTYLINE 75 MG TABLET PO SCH (21:07)
[2016-11-08] MEDS: KETOROLAC 10 MG TABLET PO SCH ×3 (03:27→14:46)
[2016-11-08 06:53] LABS: Basophils % 0.5 % (0.0-0.8); Eosinophils # 0.2 10*3/uL (0.0-0.87); Eosinophils % 2.6 % (0.00-10.9); Hematocrit 33.2 VOL% (35.7-47.0); Hemoglobin 10.9 GM/DL (12.0-16.0); Immature Granulocytes % 1.4 %; Immature Granulocytes Absolute 0.12 #; Lymphocytes # 2.1 10*3/uL (1.4-4.0); Lymphocytes % 23.7 % (21.3-54.2); Mean Corpuscular HGB Conc 32.8 GM/DL (32-36); Mean Corpuscular Hemoglobin 29 PG (27-34); Mean Corpuscular Volume 87.6 FL (87-102); Mean Platelet Volume 11.3 FL (9.6-12.0); Monocytes # 1.2 10*3/uL (0.11-0.8); Monocytes % 13.2 % (1.7-12.7); Neutrophils # 5.2 10*3/uL (1.4-7.4); Neutrophils % 58.6 % (38.7-73.9); Platelet Count 165 T/CUMM (130-400); Red Blood Count 3.79 MC/CUMM (3.8-5.5); Red Cell Distribution Width 15.5 % (9.3-17.3); White Blood Count 8.8 T/CUMM (4-12)
[2016-11-08 07:50] LABS: Calcium 8.4 MG/DL (8.5-10.1); Osmolality,Calculated 282.3 MOS/KG (273-304); Potassium 4.3 MMOL/L (3.5-5.1)
[2016-11-08] MEDS: amLODIPine 5 MG TABLET PO SCH (09:39)
[2016-11-08] MEDS: NYSTATIN 500,000 UNIT/5 ML UDCUP SWISH/SWAL SCH ×2 (09:40→12:52)
[2016-11-08] MEDS: POLYETHYLENE GLYCOL POWDER 17 GM PACK PO SCH (09:41)
[2016-11-08 10:21] LABS: DRVVT Screen Ratio 0.8 ratio (0.0 - 1.1); INR 1.4
[2016-11-08 12:01] VITALS: BP 113/68
[2016-11-08 12:44] LABS: INR 2.3
[2016-11-08 12:46] LABS: PT Patient Result 26.1 SECS
--- NOTE | 2016-11-08 13:14 | Discharge Summary ---
Hospital Course - Hospital Course Hospital Course: Ms. Tripathi is a 36-year-old female with history of hypertension and headache was admitted with the headache with nausea. She had a worse headache requiring her to be admitted in the hospital her CT scan was negative. Her brain MRI and head MRA were not significant. Initially intractable migraine was suspected. She also underwent lumbar puncture for evaluation. She continued to have be symptomatic. She underwent greater occipital nerve block as a consult after pain consult and was seen by Dr. Andino. Since he continued to be asymptomatic she underwent head MRI on 819 again and noted to have Left transverse sinus thrombosis. She was started on anticoagulation with heparin and hematology were consulted for thrombophilia. She had reported to have negative factor V Leiden mutation. Other coag studies pending. Patient has been on heparin infusion and her INR was therapeutic yesterday at 2.1. Today INR is 2.3 heparin infusion was discontinued today. She will be discharged to follow-up by medical clinic in [place] on and have follow-up PT INR for stability. Patient to follow Dr. Guy in 2 weeks. She also has to follow- up with the loading shovel oiler in [place] due to the insurance. She can be referred to hematology by her primary care in [place]. Since she has been on anticoagulation now any additional testing need to done after anticoagulation is completed. Typically has to be given for 3-6 months of anticoagulation. I will defer this to Dr. Madden but will follow her in 2 weeks. Patient also wanted to have second opinion at [facility] and [place] with neurosurgeon. Referral form is being filled on patient's request. Patient was on Toradol for pain here in the hospital she has been on anti-coagulant I will switch to tramadol as needed. She was on lisinopril HCTZ combination for hypertension at home but here she was started on amlodipine. Her blood pressure is controlled with 113/ 68 at present. I will ask her to continue blood pressure monitoring at home and follow-up with the primary care physician. She does not need to start back on HCTZ lisinopril. If her blood pressure is low she may need to stop amlodipine follow-up with the her primary care. Diagnosis - Discharge Diagnosis (1) Hypertension Status: Acute (2) Transverse sinus thrombosis Status: Acute Specialty Discharge - Follow Up or Referrals Follow up with: Manoj Guy MD [Physician] - 11/17/16 9:30 am Discharge Plan - Discharge Data Disposition: Disch To Home/Self Care Condition at Discharge: Stable Discharge Diet: advance to your usual diet Activity: resume usual activities as tolerated - Discharge Medications New Tramadol HCl [Tramadol Tab] 50 mg PO QID #20 tablet Warfarin [Coumadin] 10 mg PO DAILY@1800 #30 tablet amLODIPine [Norvasc] 5 mg PO DAILY #30 tablet Continue Promethazine Tab [Phenergan Tab] 25 mg PO Q6H #12 tablet Amitriptyline [Elavil] 10 mg PO Q6H #12 tablet Discontinued Lisinopril/Hydrochlorothiazide [Lisinopril-Hctz 20-25 mg Tab] 1 each PO DAILY #30 tablet - Follow Up or Referral Follow Up: Mnaoj Guy MD [Physician] - 11/17/16 9:30 am - Forms/Instructions Instructions: Warfarin (By mouth) Exam - Constitutional Vitals: Period Temp Pulse Resp BP Sys/Araiza Pulse Ox Last 24 Hr 97 F-98.1 F 102-111 18-20 98-115/59-99 97-100 General appearance: no acute distress - Head Head exam: Present: normal inspection, normocephalic, atraumatic - Eye Eye exam: Present: EOMI Pupils: Present: SANDRO - Respiratory Respiratory exam: Present: clear to auscultation bilaterally. Absent: rales, rhonchi - Cardiovascular Cardiovascular exam: Present: regular rate and rhythm - GI/Abdominal GI/Abdominal exam: Present: normal bowel sounds, soft. Absent: distended, tenderness - Extremities Exam Extremities exam: Present: normal inspection. Absent: edema - Neurological Exam Neurological exam: Present: alert, oriented X3 Discharge Results Procedures and tests throughout hospitalization: Pending Orders 10/29/16 11:45 AFB Culture/Smears Stat 11/03/16 09:45 Lupus Anticoag Prof Routine Prothrombin [id number] Mutation, Routine 11/05/16 21:45 Occult Blood, Stool Routine 11/08/16 18:00 PTT [Partial Thromboplastin Time] Routine 11/09/16 04:00 BMP [Basic Metabolic Panel] IN AM Comp Blood Count Auto Diff IN AM Labs on day of discharge: Labs from last 24 hours 11/08/16 11/08/16 11/08/16 11:53 06:13 06:13 WBC 8.8 RBC 3.79 L Hgb 10.9 L Hct 33.2 L MCV 87.6 MCH 29 MCHC 32.8 RDW 15.5 Plt Count 165 MPV 11.3 Neut % (Auto) 58.6 Lymph % (Auto) 23.7 [place] % (Auto) 13.2 H Eos % (Auto) 2.6 Baso % (Auto) 0.5 Neut # (Auto) 5.2 Lymph # (Auto) 2.1 [place] # (Auto) 1.2 H Eos # (Auto) 0.2 Baso # (Auto) 0.0 Immature Gran % 1.4 Nucleated RBC % 0.0 Immature Gran # 0.12 Nucleated RBCs # 0.00 Immature Plt Fraction 0.0 PT INR 2.3 APTT PT Patient/Control Mix 26.1 Lupus aPPT Interpret Dil Jeyson Viper Venom Circ Anticoag PTT 64.0 H Sodium 141 Potassium 4.3 Chloride 107 Carbon Dioxide 28 Anion Gap 10.3 BUN 22 H Creatinine 0.60 GFR Calculation 145 BUN/Creatinine Ratio 36.00 H Glucose 86 Calculated Osmolality 282.3 Calcium 8.4 L 11/07/16 11/07/16 11/03/16 17:38 17:38 09:45 WBC RBC Hgb Hct MCV MCH MCHC RDW Plt Count MPV Neut % (Auto) Lymph % (Auto) [place] % (Auto) Eos % (Auto) Baso % (Auto) Neut # (Auto) Lymph # (Auto) [place] # (Auto) Eos # (Auto) Baso # (Auto) Immature Gran % Nucleated RBC % Immature Gran # Nucleated RBCs # Immature Plt Fraction PT 15.3 H INR 2.1 1.4 APTT 142 H PT Patient/Control Mix 22.8 D Lupus aPPT Interpret See comments Dil Jeyson Viper Venom 0.8 Circ Anticoag PTT 65.7 H Sodium Potassium Chloride Carbon Dioxide Anion Gap BUN Creatinine GFR Calculation BUN/Creatinine Ratio Glucose Calculated Osmolality Calcium DS: Provider Date of admission: 10/26/16 15:48 Primary care physician: . No PCP Attending physician on admission: Aura Jimenez MD Consults: 10/25/16 14:52 Consult to Physician [CONS] Routine Comment: intractable migraine Consulting Provider: Manoj Guy Person Notified: answer machine Date Notified: 10/25/16 Time Notified: 15:15 Consult Notification Comment: left message on answering machine 10/25/16 14:59 Consult to Dietitian [CONS] Routine Reason for Dietitian: Dietary Consult 10/25/16 15:08 Consult to Physician [CONS] Routine Comment: Consulting Provider: 10/28/16 09:15 Consult to Physician [CONS] Routine Comment: Occipital nerve block Consulting Provider: Angeles Andino Person Notified: ciera Date Notified: 10/28/16 Time Notified: 09:28 10/31/16 11:42 Consult to Physician [CONS] Routine Comment: blurry vision Consulting Provider: Merlene Whitley When should Consulting Provider be notified: In am Consult to Specialist Group: Opthamology When should Consulting Provider be notified: In am Consult Notification Comment: CONSULT PUT IN WRONG BUT I CORRECTED IT AT 1500 DR PAUL WAS NOTIFIED AND OFFICE WANTS THE PT TO COME TO OFFICE. RP 11/02/16 15:12 Consult to Physician [CONS] Routine Comment: pt w/ sinus thrombus, family hx of from clot Consulting Provider: Angel Camarena When should Consulting Provider be notified: In am Person Notified: STEPHANIE Date Notified: 11/02/16 Time Notified: 16:01 Discharging clinician: Papito Moser MD
[2016-11-09 11:46] LABS: PT Mix 1:1 (Mayo Reflex) 12.2 sec; Reptilase Time, P 23 sec (14 - 23); Thrombin Time (Bovine), P 71 sec (15 - 23)
== END 2016-11-08 15:05 | disposition home or self-care (01) | DRG 92 ==
LOC: N.EDINP 08:42 → N.ED 08:42 → SUATTDRO 12:55 → N.EDINP 14:42 → N.2E 14:51 → SUATTDRO 10-26 15:48
PROVIDERS: ADMIT Internal Medicine; ATTEND Internal Medicine

== ENCOUNTER 2017-01-19 09:23 | Inpatient (IN) ==
[2017-01-19] MEDS ORDERED: ONDANSETRON 4 MG/2 ML VIAL IV STA (12:03)
[2017-01-19] MEDS ORDERED: HYDROmorphone 2 MG/1 ML VIAL IV STA ×2 (12:03→13:46)
[2017-01-19 12:26] LABS: Apearance,Urine CLEAR (Clear); Bilirubin,Urine Negative (Negative); Blood, Urine Small mg/dL (Negative); Glucose,Urine (UA) Negative (Negative); Ketones,Urine Negative (Negative); Mucus,Urine Occasional /LPF (Occasional); Nitrite,Urine Negative (Negative); Protein,Urine Negative; RBC,Urine <1 /HPF (0-4); Urine Color Straw (Yellow); Urine Specific Gravity 1.008 (1.001-1.035); Urine Urobilinogen < 2.0 EU/DL (0.2-1.0); WBC,Urine 1 /HPF (0-6)
[2017-01-19] MEDS ORDERED: HYDROmorphone 2 MG/1 ML VIAL ONE (12:37)
[2017-01-19] MEDS ORDERED: ONDANSETRON 4 MG/2 ML VIAL ONE (12:37)
[2017-01-19 12:42] LABS: Basophils % 0.7 % (0.0-0.8); Eosinophils # 0.1 10*3/uL (0.0-0.87); Eosinophils % 1.3 % (0.00-10.9); Hematocrit 42.8 VOL% (35.7-47.0); Immature Granulocytes % 0.2 %; Immature Granulocytes Absolute 0.01 #; Lymphocytes # 1.9 10*3/uL (1.4-4.0); Lymphocytes % 34.4 % (21.3-54.2); Mean Corpuscular HGB Conc 32.7 GM/DL (32-36); Mean Corpuscular Hemoglobin 29 PG (27-34); Mean Corpuscular Volume 89.9 FL (87-102); Monocytes # 0.4 10*3/uL (0.11-0.8); Monocytes % 6.8 % (1.7-12.7); Neutrophils # 3.1 10*3/uL (1.4-7.4); Neutrophils % 56.6 % (38.7-73.9); Platelet Count 191 T/CUMM (130-400); Red Blood Count 4.76 MC/CUMM (3.8-5.5); Red Cell Distribution Width 14.3 % (9.3-17.3); White Blood Count 5.4 T/CUMM (4-12)
[2017-01-19 12:44] LABS: Barbiturates Screen,Urine Negative (Negative); Benzodiazepines Screen,Urine Negative (Negative); Cannabinoid Screen,Urine Negative (Negative); Opiate Screen,Urine Negative (Negative); Phencyclidine Screen,Urine Negative (Negative)
[2017-01-19 12:56] LABS: PT Patient Result 10.5 SECS; Partial Thromboplastin Time 30.7 SECS (0-40)
[2017-01-19 13:23] LABS: Alanine Aminotransferase 30 U/L (13-56); Albumin 3.7 G/DL (3.4-5.0); Alkaline Phosphatase 130 U/L (45-117); Aspartate Amino Transferase 26 U/L (0-37); Bilirubin,Total < 0.39 MG/DL (0.2-1.0); Blood Urea Nitrogen 9 MG/DL (7-18); Calcium 8.9 MG/DL (8.5-10.1); Glucose 75 MG/DL (74-106); Osmolality,Calculated 276.4 MOS/KG (273-304); Sodium 140 MMOL/L (136-145); Total Protein 7.4 G/DL (6.4-8.3)
[2017-01-19] MEDS ORDERED: diphenhydrAMINE 50 MG/1 ML VIAL IV STA ×2 (14:17→14:45)
[2017-01-19] MEDS ORDERED: diphenhydrAMINE 50 MG/1 ML VIAL ONE ×2 (14:19→14:47)
[2017-01-19 14:47] LABS: Troponin I Only < 0.015 NG/ML (0.00-0.045)
[2017-01-19] MEDS ORDERED: ONDANSETRON 4 MG/2 ML VIAL IV PRN (16:06)
[2017-01-19] MEDS ORDERED: ACETAMINOPHEN 325 MG TABLET PO PRN (16:06)
[2017-01-19] MEDS ORDERED: ENOXAPARIN 40 MG/0.4 ML SYRINGE SUBCUT SCH (16:30)
[2017-01-19] MEDS: SODIUM CHLORIDE 0.9% 1,000 ML IV SCH (16:33)
[2017-01-19] MEDS ORDERED: NITROGLYCERIN SL 0.4 MG TABLET SL PRN (16:42)
[2017-01-19] MEDS ORDERED: PROMETHAZINE 25 MG TABLET PO PRN (16:43)
[2017-01-19] MEDS ORDERED: ZIPRASIDONE 20 MG/1 ML VIAL IM ONE (18:14)
[2017-01-19] MEDS: KETOROLAC 10 MG TABLET PO SCH (20:28)
[2017-01-19] MEDS: DOCUSATE SODIUM 100 MG CAPSULE PO SCH (20:28)
[2017-01-19] MEDS: APIXABAN 2.5 MG TABLET PO SCH (20:29)
[2017-01-19] MEDS: AMITRIPTYLINE 25 MG TABLET PO SCH (20:31)
[2017-01-19] MEDS: METOPROLOL TARTRATE 25 MG TABLET PO SCH (20:33)
[2017-01-20] MEDS: SODIUM CHLORIDE 0.9% 1,000 ML IV SCH ×3 (00:37→16:22)
[2017-01-20 06:30] LABS: Basophils % 0.7 % (0.0-0.8); Eosinophils # 0.1 10*3/uL (0.0-0.87); Eosinophils % 1.7 % (0.00-10.9); Hematocrit 34.4 VOL% (35.7-47.0); Hemoglobin 11.5 GM/DL (12.0-16.0); Immature Granulocytes % 0.2 %; Immature Granulocytes Absolute 0.01 #; Lymphocytes # 2.2 10*3/uL (1.4-4.0); Mean Corpuscular HGB Conc 33.4 GM/DL (32-36); Mean Corpuscular Hemoglobin 30 PG (27-34); Mean Corpuscular Volume 89.1 FL (87-102); Mean Platelet Volume 11.7 FL (9.6-12.0); Monocytes # 0.5 10*3/uL (0.11-0.8); Monocytes % 8.7 % (1.7-12.7); Neutrophils # 2.9 10*3/uL (1.4-7.4); Neutrophils % 50.7 % (38.7-73.9); Platelet Count 177 T/CUMM (130-400); Red Blood Count 3.86 MC/CUMM (3.8-5.5); Red Cell Distribution Width 14.2 % (9.3-17.3); White Blood Count 5.8 T/CUMM (4-12)
[2017-01-20 07:00] LABS: Magnesium 1.9 MG/DL (1.8-2.4); Potassium 3.7 MMOL/L (3.5-5.1)
[2017-01-20] MEDS: traMADol 50 MG TABLET PO PRN (07:36)
[2017-01-20] MEDS: APIXABAN 2.5 MG TABLET PO SCH ×2 (08:48→20:48)
[2017-01-20] MEDS: KETOROLAC 10 MG TABLET PO SCH ×3 (08:48→20:47)
[2017-01-20] MEDS: DOCUSATE SODIUM 100 MG CAPSULE PO SCH ×2 (08:49→20:49)
[2017-01-20] MEDS: PANTOPRAZOLE 40 MG TABLET PO SCH (08:49)
[2017-01-20] MEDS: METOPROLOL TARTRATE 25 MG TABLET PO SCH ×2 (08:49→20:48)
[2017-01-20] MEDS: AMITRIPTYLINE 25 MG TABLET PO SCH (20:49)
[2017-01-21] MEDS: SODIUM CHLORIDE 0.9% 1,000 ML IV SCH ×2 (01:40→09:52)
[2017-01-21 05:43] LABS: Basophils % 0.6 % (0.0-0.8); Eosinophils # 0.1 10*3/uL (0.0-0.87); Eosinophils % 2.3 % (0.00-10.9); Hematocrit 33.9 VOL% (35.7-47.0); Hemoglobin 11.1 GM/DL (12.0-16.0); Lymphocytes # 1.9 10*3/uL (1.4-4.0); Lymphocytes % 36.9 % (21.3-54.2); Mean Corpuscular HGB Conc 32.7 GM/DL (32-36); Mean Corpuscular Hemoglobin 29 PG (27-34); Mean Corpuscular Volume 89.7 FL (87-102); Mean Platelet Volume 11.7 FL (9.6-12.0); Monocytes # 0.6 10*3/uL (0.11-0.8); Monocytes % 10.8 % (1.7-12.7); Neutrophils # 2.6 10*3/uL (1.4-7.4); Neutrophils % 49.4 % (38.7-73.9); Platelet Count 166 T/CUMM (130-400); Red Blood Count 3.78 MC/CUMM (3.8-5.5); Red Cell Distribution Width 14.4 % (9.3-17.3); White Blood Count 5.3 T/CUMM (4-12)
[2017-01-21 06:23] LABS: Calcium 7.6 MG/DL (8.5-10.1); Magnesium 1.9 MG/DL (1.8-2.4); Osmolality,Calculated 281.1 MOS/KG (273-304); Potassium 4.1 MMOL/L (3.5-5.1)
[2017-01-21] MEDS: traMADol 50 MG TABLET PO PRN (06:45)
[2017-01-21 09:17] VITALS: BP 140/76
[2017-01-21] MEDS: DOCUSATE SODIUM 100 MG CAPSULE PO SCH (09:52)
[2017-01-21] MEDS: APIXABAN 2.5 MG TABLET PO SCH (09:53)
[2017-01-21] MEDS: METOPROLOL TARTRATE 25 MG TABLET PO SCH (09:54)
[2017-01-21] MEDS: PANTOPRAZOLE 40 MG TABLET PO SCH (09:55)
[2017-01-21] MEDS: KETOROLAC 10 MG TABLET PO SCH (09:55)
[2017-01-22 11:46] LABS: Homocysteine 8 mcmol/L
[2017-01-24 12:41] LABS: Protein S Activity Plasma 140 % (50 - 160)
[2017-01-24 14:01] LABS: Protein C Activity Plasma 113 % (70 - 150)
[2017-01-24 15:08] LABS: Coag Factor VIII Activity Assa 67 % (55 - 200); Thrombin Time (Bovine), P 21 sec (15 - 23)
[2017-01-25 08:56] LABS: F5DNA Reviewed By SEE COMMENTS; Factor V Leiden (R506Q) Mutati Negative (Negative)
== END 2017-01-21 13:10 | disposition home or self-care (01) | DRG 102 ==
LOC: N.ED 09:23 → N.EDINP 14:36 → N.4E 16:05
PROVIDERS: ADMIT Family Medicine; ATTEND Family Medicine

== ENCOUNTER 2018-06-15 10:25 | Inpatient (IN) ==
[2018-06-15] MEDS ORDERED: PROMETHAZINE INJ 25 MG in SODIUM CHLORIDE 0.9% 50 ML IV STA (11:44)
[2018-06-15] MEDS ORDERED: MEPERIDINE 50 MG/1 ML VIAL IV STA (11:44)
[2018-06-15] MEDS ORDERED: SODIUM CHLORIDE 0.9% 1,000 ML IV STA (11:44)
[2018-06-15] MEDS ORDERED: MEPERIDINE 25 MG/1 ML VIAL ONE (11:51)
[2018-06-15] MEDS ORDERED: PROMETHAZINE 25 MG/1 ML VIAL ONE (11:52)
[2018-06-15 12:28] LABS: Alanine Aminotransferase 22 U/L (13-56); Albumin 3.4 G/DL (3.4-5.0); Alkaline Phosphatase 151 U/L (45-117); Aspartate Amino Transferase 16 U/L (0-37); Basophils % 0.3 % (0.0-0.8); Bilirubin,Total < 0.39 MG/DL (0.2-1.0); Blood Urea Nitrogen 12 MG/DL (7-18); Calcium 8.6 MG/DL (8.5-10.1); Eosinophils % 0.1 % (0.00-10.9); Glucose 92 MG/DL (74-106); Hematocrit 42.6 VOL% (35.7-47.0); Hemoglobin 13.5 GM/DL (12.0-16.0); Immature Granulocytes % 0.4 %; Immature Granulocytes Absolute 0.04 #; Lymphocytes # 2.1 10*3/uL (1.4-4.0); Lymphocytes % 19.6 % (21.3-54.2); Mean Corpuscular HGB Conc 31.7 GM/DL (32-36); Mean Corpuscular Hemoglobin 28 PG (27-34); Mean Corpuscular Volume 89.3 FL (87-102); Mean Platelet Volume 10.6 FL (9.6-12.0); Monocytes # 0.7 10*3/uL (0.11-0.8); Monocytes % 6.8 % (1.7-12.7); Neutrophils # 7.8 10*3/uL (1.4-7.4); Neutrophils % 72.8 % (38.7-73.9); Osmolality,Calculated 278.4 MOS/KG (273-304); Platelet Count 229 T/CUMM (130-400); Potassium 3.9 MMOL/L (3.5-5.1); Red Blood Count 4.77 MC/CUMM (3.8-5.5); Red Cell Distribution Width 14.4 % (9.3-17.3); Sodium 140 MMOL/L (136-145); Total Protein 6.9 G/DL (6.4-8.3); White Blood Count 10.7 T/CUMM (4-12)
[2018-06-15] MEDS ORDERED: VALPROIC ACID INJ 500 MG in SODIUM CHLORIDE 0.9% 100 ML IV STA (13:15)
[2018-06-15 14:29] LABS: Apearance,Urine CLEAR (Clear); Bilirubin,Urine Negative (Negative); Blood, Urine Small mg/dL (Negative); Glucose,Urine (UA) Negative (Negative); Ketones,Urine Negative (Negative); Mucus,Urine Few /LPF (Occasional); Nitrite,Urine Negative (Negative); Protein,Urine Negative; RBC,Urine 1 /HPF (0-4); Urine Color Yellow (Yellow); Urine Specific Gravity 1.018 (1.001-1.035); Urine Urobilinogen < 2.0 EU/DL (0.2-1.0); WBC,Urine 1 /HPF (0-6)
[2018-06-15] MEDS ORDERED: diphenhydrAMINE 50 MG/1 ML VIAL IV STA (16:28)
[2018-06-15] MEDS ORDERED: KETOROLAC 30 MG/1 ML VIAL IV STA (16:28)
[2018-06-15] MEDS ORDERED: ACETAMINOPHEN 325 MG TABLET PO PRN (16:47)
[2018-06-15] MEDS ORDERED: PROMETHAZINE 25 MG/1 ML VIAL IM PRN (16:47)
[2018-06-15] MEDS ORDERED: oxyCODONE/ACETAMINOPHEN 5-325 MG TABLET PO PRN (16:47)
[2018-06-15] MEDS: SODIUM CHLORIDE 0.9% 1,000 ML IV SCH (18:47)
[2018-06-15] MEDS: ENOXAPARIN 40 MG/0.4 ML SYRINGE SUBCUT SCH (18:47)
[2018-06-15] MEDS: DOCUSATE SODIUM 100 MG CAPSULE PO SCH (20:39)
[2018-06-15] MEDS: PANTOPRAZOLE 40 MG TABLET PO SCH (20:39)
[2018-06-15] MEDS: MEPERIDINE 25 MG/1 ML VIAL IV PRN (21:13)
[2018-06-16] MEDS: DOCUSATE SODIUM 100 MG CAPSULE PO SCH ×2 (08:20→20:53)
[2018-06-16] MEDS: PANTOPRAZOLE 40 MG TABLET PO SCH (08:20)
[2018-06-16] MEDS: SODIUM CHLORIDE 0.9% 1,000 ML IV SCH ×2 (08:22→20:55)
[2018-06-16] MEDS: MEPERIDINE 25 MG/1 ML VIAL IV PRN (08:23)
[2018-06-16] MEDS ORDERED: CELECOXIB 200 MG CAPSULE PO PRN (08:57)
[2018-06-16] MEDS ORDERED: PROMETHAZINE 25 MG TABLET PO PRN (08:57)
[2018-06-16] MEDS ORDERED: NON-FORMULARY MEDICATION (Omeprazole [Omeprazole] 20 MG) PO PRN (08:57)
[2018-06-16] MEDS: FLUoxetine 20 MG CAPSULE PO SCH (09:17)
[2018-06-16] MEDS: METOPROLOL TARTRATE 25 MG TABLET PO SCH ×2 (09:17→20:54)
[2018-06-16] MEDS ORDERED: NON-FORMULARY MEDICATION SUBCUT SCH (13:00)
[2018-06-16] MEDS ORDERED: ZIPRASIDONE 20 MG/1 ML VIAL IM ONE (14:05)
[2018-06-16] MEDS: ENOXAPARIN 40 MG/0.4 ML SYRINGE SUBCUT SCH (17:28)
[2018-06-16] MEDS: MEPERIDINE 50 MG/1 ML VIAL IV PRN (17:36)
[2018-06-17] MEDS: MEPERIDINE 50 MG/1 ML VIAL IV PRN ×2 (01:38→09:56)
[2018-06-17] MEDS: METOPROLOL TARTRATE 25 MG TABLET PO SCH ×2 (08:55→20:14)
[2018-06-17] MEDS: DOCUSATE SODIUM 100 MG CAPSULE PO SCH ×2 (08:55→20:14)
[2018-06-17] MEDS: PANTOPRAZOLE 40 MG TABLET PO SCH (08:56)
[2018-06-17] MEDS: FLUoxetine 20 MG CAPSULE PO SCH (08:56)
[2018-06-17] MEDS ORDERED: PROMETHAZINE 25 MG/1 ML VIAL IM ONE (13:18)
[2018-06-17] MEDS: SODIUM CHLORIDE 0.9% 1,000 ML IV SCH (13:37)
[2018-06-17] MEDS: SUMAtriptan 6 MG/0.5 ML VIAL SUBCUT PRN ×2 (14:08→20:15)
[2018-06-17] MEDS: ENOXAPARIN 40 MG/0.4 ML SYRINGE SUBCUT SCH (17:46)
[2018-06-18] MEDS: MEPERIDINE 50 MG/1 ML VIAL IV PRN (06:01)
[2018-06-18] MEDS: PANTOPRAZOLE 40 MG TABLET PO SCH (09:19)
[2018-06-18] MEDS: METOPROLOL TARTRATE 25 MG TABLET PO SCH ×2 (09:19→20:46)
[2018-06-18] MEDS: FLUoxetine 20 MG CAPSULE PO SCH (09:19)
[2018-06-18] MEDS: DOCUSATE SODIUM 100 MG CAPSULE PO SCH ×2 (09:19→20:46)
[2018-06-18] MEDS: PROMETHAZINE INJ 12.5 MG in SODIUM CHLORIDE 0.9% 50 ML IV PRN ×2 (13:41→20:47)
[2018-06-18] MEDS: ENOXAPARIN 40 MG/0.4 ML SYRINGE SUBCUT SCH (18:07)
[2018-06-18] MEDS: SUMAtriptan 6 MG/0.5 ML VIAL SUBCUT PRN (20:47)
[2018-06-19] MEDS: METOPROLOL TARTRATE 25 MG TABLET PO SCH ×2 (09:24→20:33)
[2018-06-19] MEDS: DOCUSATE SODIUM 100 MG CAPSULE PO SCH ×2 (09:25→20:33)
[2018-06-19] MEDS: PANTOPRAZOLE 40 MG TABLET PO SCH (09:25)
[2018-06-19] MEDS: FLUoxetine 20 MG CAPSULE PO SCH (09:26)
[2018-06-19] MEDS: PROMETHAZINE INJ 12.5 MG in SODIUM CHLORIDE 0.9% 50 ML IV PRN (12:22)
[2018-06-19] MEDS ORDERED: PROMETHAZINE 25 MG/1 ML VIAL IM SCH (16:30)
[2018-06-19] MEDS: methylPREDNISolone SOD SUC 40 MG/1 ML VIAL IV SCH (17:09)
[2018-06-19] MEDS: VALPROIC ACID INJ 500 MG in SODIUM CHLORIDE 0.9% 100 ML IV SCH (17:11)
[2018-06-19] MEDS: ENOXAPARIN 40 MG/0.4 ML SYRINGE SUBCUT SCH (17:19)
[2018-06-19] MEDS ORDERED: LIDOCAINE 1% 20 ML VIAL NERVEBLOCK ONE (17:26)
[2018-06-19] MEDS ORDERED: DEXAMETHASONE 10 MG/1 ML VIAL IM SCH (17:30)
[2018-06-20] MEDS: MEPERIDINE 50 MG/1 ML VIAL IV PRN (01:28)
[2018-06-20] MEDS: VALPROIC ACID INJ 500 MG in SODIUM CHLORIDE 0.9% 100 ML IV SCH ×3 (01:28→16:44)
[2018-06-20] MEDS: PROMETHAZINE 25 MG/1 ML VIAL IM SCH ×3 (01:29→16:49)
[2018-06-20] MEDS: methylPREDNISolone SOD SUC 40 MG/1 ML VIAL IV SCH ×3 (01:30→16:45)
[2018-06-20] MEDS: METOPROLOL TARTRATE 25 MG TABLET PO SCH ×2 (10:03→20:33)
[2018-06-20] MEDS: FLUoxetine 20 MG CAPSULE PO SCH (10:03)
[2018-06-20] MEDS: DOCUSATE SODIUM 100 MG CAPSULE PO SCH ×2 (10:04→20:34)
[2018-06-20] MEDS: PANTOPRAZOLE 40 MG TABLET PO SCH (10:04)
[2018-06-20] MEDS ORDERED: MEPERIDINE 25 MG/1 ML VIAL IV PRN (11:34)
[2018-06-20] MEDS: SODIUM CHLORIDE 0.9% 1,000 ML IV SCH ×3 (16:41→17:32)
[2018-06-20] MEDS: ENOXAPARIN 40 MG/0.4 ML SYRINGE SUBCUT SCH (16:45)
[2018-06-21] MEDS: VALPROIC ACID INJ 500 MG in SODIUM CHLORIDE 0.9% 100 ML IV SCH (01:03)
[2018-06-21] MEDS: methylPREDNISolone SOD SUC 40 MG/1 ML VIAL IV SCH (01:04)
[2018-06-21] MEDS: PROMETHAZINE 25 MG/1 ML VIAL IM SCH (01:06)
[2018-06-21 04:47] LABS: Basophils % 0.2 % (0.0-0.8); Hematocrit 39.5 VOL% (35.7-47.0); Hemoglobin 12.3 GM/DL (12.0-16.0); Immature Granulocytes % 0.9 %; Immature Granulocytes Absolute 0.19 #; Lymphocytes # 1.5 10*3/uL (1.4-4.0); Lymphocytes % 7.4 % (21.3-54.2); Mean Corpuscular HGB Conc 31.1 GM/DL (32-36); Mean Corpuscular Hemoglobin 28 PG (27-34); Mean Corpuscular Volume 89.8 FL (87-102); Mean Platelet Volume 11.9 FL (9.6-12.0); Monocytes # 0.7 10*3/uL (0.11-0.8); Monocytes % 3.2 % (1.7-12.7); Neutrophils # 18.2 10*3/uL (1.4-7.4); Neutrophils % 88.3 % (38.7-73.9); Platelet Count 211 T/CUMM (130-400); Red Cell Distribution Width 14.7 % (9.3-17.3); White Blood Count 20.6 T/CUMM (4-12)
[2018-06-21 05:08] LABS: Calcium 8.1 MG/DL (8.5-10.1); Osmolality,Calculated 289.8 MOS/KG (273-304); Potassium 3.9 MMOL/L (3.5-5.1)
[2018-06-21 05:11] LABS: Platelet Estimate Adequate
[2018-06-21 05:12] LABS: Hypochromasia Slight
[2018-06-21] MEDS: METOPROLOL TARTRATE 25 MG TABLET PO SCH (09:04)
[2018-06-21] MEDS: PANTOPRAZOLE 40 MG TABLET PO SCH (09:04)
[2018-06-21] MEDS: DOCUSATE SODIUM 100 MG CAPSULE PO SCH (09:04)
[2018-06-21] MEDS: FLUoxetine 20 MG CAPSULE PO SCH (09:04)
[2018-06-21 10:03] LABS: Basophils # 0.1 10*3/uL (0.0-0.2); Basophils % 0.2 % (0.0-0.8); Hematocrit 43.6 VOL% (35.7-47.0); Hemoglobin 13.6 GM/DL (12.0-16.0); Immature Granulocytes Absolute 0.26 #; Lymphocytes % 7.7 % (21.3-54.2); Mean Corpuscular HGB Conc 31.2 GM/DL (32-36); Mean Corpuscular Hemoglobin 28 PG (27-34); Mean Corpuscular Volume 89.9 FL (87-102); Monocytes # 1.1 10*3/uL (0.11-0.8); Monocytes % 4.2 % (1.7-12.7); Neutrophils # 22.6 10*3/uL (1.4-7.4); Neutrophils % 86.9 % (38.7-73.9); Platelet Count 248 T/CUMM (130-400); Red Blood Count 4.85 MC/CUMM (3.8-5.5)
[2018-06-21 10:51] LABS: Band Neutrophils 8 % (0-10); Lymphocytes 4 % (20-55); Platelet Estimate Normal; Segmented Neutrophils 85 % (50-85); Total Cells Counted 100
[2018-06-21 10:52] LABS: Anisocytosis Slight; Smudge Cells Few
[2018-06-21 11:35] VITALS: BP 119/73
[2018-06-21 12:22] LABS: Apearance,Urine CLEAR (Clear); Bilirubin,Urine Negative (Negative); Blood, Urine Small mg/dL (Negative); Glucose,Urine (UA) 50 mg/dL (Negative); Ketones,Urine 5 mg/dL (Negative); Mucus,Urine Occasional /LPF (Occasional); Nitrite,Urine Negative (Negative); Protein,Urine Negative; RBC,Urine 1 /HPF (0-4); Urine Color Straw (Yellow); Urine Specific Gravity 1.014 (1.001-1.035); Urine Urobilinogen < 2.0 EU/DL (0.2-1.0); WBC,Urine 1 /HPF (0-6)
== END 2018-06-21 13:55 | disposition home or self-care (01) | DRG 102 ==
LOC: N.ED 10:25 → N.EDINP 10:25 → SUPCPDRO 16:47 → N.4E 18:31
PROVIDERS: ADMIT Family Medicine; ATTEND Family Medicine